=== PATIENT | female | born 1950 | race Caucasian/White ===

== ENCOUNTER 2017-11-23 07:30 | Inpatient (IN) | payer MEDICARE ==
[~2017-11-23] VITALS: Ht 160 cm; Wt 61.6 kg
[2017-11-23 07:59] VITALS: BP 102/56; PULSE 92; RESP 18; TEMP 98.7; O2SAT 99
[2017-11-23] MEDS ORDERED: SODIUM CHLOR 0.9% 1000 ML INJ 1,000 ML IV SCH (07:59)
[2017-11-23] MEDS ORDERED: SODIUM CHLORIDE 0.9% FLUSH 10 ML FLUSH IV FLUSH PRN (08:00)
[2017-11-23] MEDS ORDERED: ONDANSETRON HCL 4 MG/2 ML VIAL IVP ONE (08:00)
[2017-11-23] MEDS ORDERED: FAMOTIDINE 20 MG/2 ML VIAL IV PUSH ONE (08:00)
[2017-11-23] MEDS ORDERED: ALUMINUM/MAGNESIUM/SIMETH 30 ML CUP PO ONE (08:00)
[2017-11-23] MEDS ORDERED: LIDOCAINE VISCOUS 2% SOLN 15 ML UDC PO ONE (08:00)
[2017-11-23 08:02] VITALS: O2SAT 94; O2SAT 99
[2017-11-23] MEDS ORDERED: VORT1TAB3 PO (08:08)
[2017-11-23 08:58] LABS: AUTOMATED NEUTROPHIL # 2.7 TH/MM3 (1.8-7.7); BASOPHIL % 0.3 % (0.0-2.0); EOSINOPHIL % 0.6 % (0.0-4.0); HEMATOCRIT 44.2 % (35.0-46.0); HEMOGLOBIN 14.5 GM/DL (11.6-15.3); LYMPH % 13.4 % (9.0-44.0); LYMPHOCYTE # 0.6 TH/MM3 (1.0-4.8); MEAN CELL VOLUME 92.5 FL (80.0-100.0); MEAN CORPUSCULAR HEMOGLOBIN 30.3 PG (27.0-34.0); MEAN CORPUSCULAR HGB CONC 32.8 % (32.0-36.0); MEAN PLATELET VOLUME 9.3 FL (7.0-11.0); MONO % 27.5 % (0.0-8.0); MONOCYTE # 1.3 TH/MM3 (0-0.9); NEUT % 58.2 % (16.0-70.0); PLATELET COUNT 313 TH/MM3 (150-450); RED BLOOD COUNT 4.78 MIL/MM3 (4.00-5.30); RED CELL DISTRIBUTION WIDTH 15.1 % (11.6-17.2); WHITE BLOOD COUNT 4.7 TH/MM3 (4.0-11.0)
[2017-11-23 09:23] LABS: ALBUMIN 3.6 GM/DL (3.4-5.0); ALT (GPT) 14 U/L (10-53); BICARBONATE 24.4 MEQ/L (21.0-32.0); BLOOD UREA NITROGEN 21 MG/DL (7-18); CALCIUM 8.9 MG/DL (8.5-10.1); CHLORIDE 100 MEQ/L (98-107); GLUCOSE,RANDOM 107 MG/DL (74-106); LIPASE 55 U/L (73-393); SODIUM (NA) 134 MEQ/L (136-145)
[2017-11-23 09:24] LABS: AST (GOT) 15 U/L (15-37); GLOMERULAR FILTRATION RATE 71 ML/MIN (>89)
[2017-11-23 09:26] LABS: ALKALINE PHOSPHATASE 83 U/L (45-117); TOTAL BILIRUBIN ADULT 0.6 MG/DL (0.2-1.0); TOTAL PROTEIN 7.4 GM/DL (6.4-8.2)
[2017-11-23] MEDS ORDERED: DIAZEPAM 5 MG TAB PO ONE (10:00)
--- NOTE | 2017-11-23 10:09 | RADRPT ---
EXAM DATE/TIME: 11/23/2017 09:46 [place] COMPARISON: No previous studies available for comparison. INDICATIONS : Diffuse abdomen pain with nausea and vomiting for three days. ORAL CONTRAST: No oral contrast ingested. RADIATION DOSE: 4.93 CTDIvol (mGy) MEDICAL HISTORY : diabetes SURGICAL HISTORY : Cholecystectomy. Tonsillectomy.hernia repair ENCOUNTER: Initial ACUITY: 3 days PAIN SCALE: 9/10 LOCATION: Bilateral abdomen TECHNIQUE: Volumetric scanning of the abdomen and pelvis was performed. Using automated exposure control and ad justment of the mA and/or kV according to patient size, radiation dose was kept as low as reasonably achievable to obtain optimal diagnostic quality images. DICOM format image data is available electro nically for review and comparison. FINDINGS: LOWER LUNGS: The visualized lower lungs are clear. Trace pericardial effusion. LIVER: Moderate severity intrahepatic biliary ductal dilatation involving the left lobe. No discrete mass id entified. The common duct is dilated measuring 15 mm in diameter. Status post cholecystectomy. SPLEEN: Normal size without lesion. PANCREAS: Within normal limits. KIDNEYS: Normal in size and shape. There is no mass, stone, or hydronephrosis. ADRENAL GLANDS: Within normal limits. VASCULAR: There is no aortic aneurysm. BOWEL/MESENTERY: Mild distention of multiple loops of mid small bowel with multiple air-fluid levels. Moderate distent ion of a loop of small bowel in the pelvis. Distal ileum is decompressed. Possible transition point i n the right lower quadrant. Gas and stool throughout the colon. No free air or free fluid. Likely manuel endix is identified and it is within normal limits. ABDOMINAL WALL: Within normal limits. RETROPERITONEUM: Retroperitoneal surgical clips just below the aortic bifurcation. BLADDER: No wall thickening or mass. REPRODUCTIVE: Within normal limits. INGUINAL: There is no lymphadenopathy or hernia. MUSCULOSKELETAL: Within normal limits for patient age. CONCLUSION: 1. Dilated distal small bowel with possible transition point indicating possible early or partial sma ll bowel obstruction. 2. Nonspecific dilated intrahepatic biliary ducts of the left lobe and prominent common duct. Common duct dilatation may be due to the postcholecystectomy state. Dusty Ruff MD on November 23, 2017 at 9:59 Board Certified Radiologist. This report was verified electronically.
--- NOTE | 2017-11-23 10:19 | PD ---
HPI Chief Complaint: Abdominal Pain Time Seen by Provider: 07:59 Travel History International Travel<30 days: No Contact w/Intl Traveler<30days: No Traveled to known affect area: No History of Present Illness HPI Patient is a 67 year old female who comes in complaining of abdominal pain. She says she has history of gastritis and this feels similar. She says that this started 2 days ago. She is traveling from [place] and has been in the car for the past 2 days. She says she has been vomiting and has had "soft" bowel movements. She denies fever or chills. She says that Valium usually helps her, but she is traveling and does not have any. She has been taking Tylenol, but this has not helped any of her symptoms. She says nothing seems to make her symptoms better. [facility] Past Medical History Anxiety: Yes Depression: Yes Cancer: Yes Diabetes: Yes Past Surgical History Cholecystectomy: Yes Eye Surgery: Yes Tonsillectomy: Yes Other Surgery: Yes (HERINA, LAPAROTOMY ) Social History Alcohol Use: Yes (OCC) Tobacco Use: No Substance Use: No Allergies-Medications (Allergen,Severity, Reaction): Coded Allergies: codeine (Verified Allergy, Unknown, 11/23/17) Reported Meds & Prescriptions Reported Meds & Active Scripts Active Reported Trintellix (Vortioxetine) 20 Mg Tab 20 Mg PO DAILY Review of Systems Except as stated in HPI: all other systems reviewed are Neg General / Constitutional: No: Fever, Chills HENT: No: Headaches, Lightheadedness Cardiovascular: No: Chest Pain or Discomfort Respiratory: No: Shortness of Breath Gastrointestinal: Positive: Nausea, Vomiting, Abdominal Pain Genitourinary: No: Dysuria Musculoskeletal: No: Myalgias, Edema Skin: No Rash, No Change in Pigmentation Neurologic: No: Weakness, Dizziness Physical Exam Narrative GENERAL: Awake and alert, in no acute distress. SKIN: Focused skin assessment warm/dry. HEAD: Atraumatic. Normocephalic. EYES: Pupils equal and round. No scleral icterus. No injection or drainage. ENT: Mucous membranes pink and moist. NECK: Trachea midline. No JVD. CARDIOVASCULAR: Regular rate and rhythm. No murmur appreciated. RESPIRATORY: No accessory muscle use. Clear to auscultation. Breath sounds equal bilaterally. GASTROINTESTINAL: Abdomen soft, nondistended. Diffuse tenderness to palpation, no rebound or guarding. MUSCULOSKELETAL: No obvious deformities. No clubbing. No cyanosis. No edema. NEUROLOGICAL: Awake and alert. No obvious cranial nerve deficits. Motor grossly within normal limits. Normal speech. PSYCHIATRIC: Appropriate mood and affect; insight and judgment normal. Data Data Last Documented VS Vital Signs Date Time Temp Pulse Resp B/P (MAP) Pulse Ox O2 Delivery O2 Flow Rate FiO2 11/23/17 08:03 18 11/23/17 08:02 99 Room Air 11/23/17 07:59 98.7 92 102/56 (71) Orders Orders Complete Blood Count With Diff (11/23/17 07:59) Comprehensive Metabolic Panel (11/23/17 07:59) Lipase (11/23/17 07:59) Prothrombin Time / Inr (Pt) (11/23/17 07:59) Act Partial Throm Time (Ptt) (11/23/17 07:59) Urinalysis - C+S If Indicated (11/23/17 07:59) Iv Access Insert/Monitor (11/23/17 07:59) Ecg Monitoring (11/23/17 07:59) Oximetry (11/23/17 07:59) Ondansetron Inj (Zofran Inj) (11/23/17 08:00) Sodium Chlor 0.9% 1000 Ml Inj (Ns 1000 M (11/23/17 07:59) Sodium Chloride 0.9% Flush (Ns Flush) (11/23/17 08:00) Famotidine Inj (Pepcid Inj) (11/23/17 08:00) Al-Mag Hy-Si 40-40-4 Mg/Ml Liq (Mag-Al P (11/23/17 08:00) Lidocaine 2% Viscous (Xylocaine 2% Visco (11/23/17 08:00) Lactic Acid (11/23/17 08:39) Ct Abd/Pel W/O Iv Contrast (11/23/17 ) Diazepam (Valium) (11/23/17 10:00) Ng Gastric Tube Insert/Monitor (11/23/17 10:36) Admit Order (Ed Use Only) (11/23/17 ) Labs Laboratory Tests Test 11/23/17 08:35 11/23/17 08:45 11/23/17 11:00 White Blood Count 4.7 TH/MM3 Red Blood Count 4.78 MIL/MM3 Hemoglobin 14.5 GM/DL Hematocrit 44.2 % Mean Corpuscular Volume 92.5 FL Mean Corpuscular Hemoglobin 30.3 PG Mean Corpuscular Hemoglobin Concent 32.8 % Red Cell Distribution Width 15.1 % Platelet Count 313 TH/MM3 Mean Platelet Volume 9.3 FL Neutrophils (%) (Auto) 58.2 % Lymphocytes (%) (Auto) 13.4 % Monocytes (%) (Auto) 27.5 % Eosinophils (%) (Auto) 0.6 % Basophils (%) (Auto) 0.3 % Neutrophils # (Auto) 2.7 TH/MM3 Lymphocytes # (Auto) 0.6 TH/MM3 Monocytes # (Auto) 1.3 TH/MM3 Eosinophils # (Auto) 0.0 TH/MM3 Basophils # (Auto) 0.0 TH/MM3 CBC Comment DIFF FINAL Differential Comment Blood Urea Nitrogen 21 MG/DL Creatinine 0.80 MG/DL Random Glucose 107 MG/DL Total Protein 7.4 GM/DL Albumin 3.6 GM/DL Calcium Level 8.9 MG/DL Alkaline Phosphatase 83 U/L Aspartate Amino Transf (AST/SGOT) 15 U/L Alanine Aminotransferase (ALT/SGPT) 14 U/L Total Bilirubin 0.6 MG/DL Sodium Level 134 MEQ/L Potassium Level 4.0 MEQ/L Chloride Level 100 MEQ/L Carbon Dioxide Level 24.4 MEQ/L Anion Gap 10 MEQ/L Estimat Glomerular Filtration Rate 71 ML/MIN Lipase 55 U/L Lactic Acid Level 1.2 mmol/L MDM Medical Decision Making Medical Screen Exam Complete: Yes Emergency Medical Condition: Yes Differential Diagnosis gastritis vs pancreatitis vs colitis Narrative Course Patient is a 67-year-old female comes in complaining of abdominal pain with nausea and vomiting. Exam shows diffuse abdominal tenderness. IV established, labs sent. Labs show evidence of mild dehydration. CT abdomen and pelvis performed shows possible small bowel obstruction with a transition point. Last 24 hours Impressions Abdomen/Pelvis CT 11/23/17 0000 Signed Impressions: Service Date/Time: Thursday, November 23, 2017 09:46 - CONCLUSION: 1. Dilated distal small bowel with possible transition point indicating possible early or partial small bowel obstruction. 2. Nonspecific dilated intrahepatic biliary ducts of the left lobe and prominent common duct. Common duct dilatation may be due to the postcholecystectomy state. Dusty Ruff MD NG tube was inserted. Patient given Zofran and pain medication. She'll be admitted for further management. Diagnosis Primary Impression: Small bowel obstruction Admitting Information Admitting Physician Requests: Admit Deepali Cox MD Nov 23, 2017 10:19
[2017-11-23 11:00] VITALS: BP 102/50; PULSE 90; RESP 16; O2SAT 93
[2017-11-23 11:29] LABS: BACTERIA, URINE FEW /hpf; BILIRUBIN, URINE NEG (NEG); BLOOD, URINE NEG (NEG); GLUCOSE,URINE NEG (NEG); KETONE, URINE 40 mg/dL (NEG); MUCUS URINE FEW /lpf (OCC); NITRITE,URINE POS (NEG); SQUAMOUS EPITHELIAL CELL URINE <1 /hpf (0-5); URINE COLOR YELLOW (YELLW/STRAW); URINE LEUKOCYTE ESTERASE NEG (NEG)
[2017-11-23] MEDS ORDERED: RESP: ALBUTEROL 2.5 MG/IPRATROPIUM 0.5 MG NEB (PRN) NEB (11:30)
[2017-11-23] MEDS ORDERED: ACETAMINOPHEN 650 MG SUPP RECTAL PRN (11:30)
[2017-11-23 11:37] VITALS: O2SAT 93
--- NOTE | 2017-11-23 11:41 | HHI.HP ---
[facility] Unknown Admission Diagnosis Small bowel obstruction Diagnoses: Travel History International Travel<30 Days: No Contact w/Intl Traveler <30 Da: No Traveled to Known Affected Are: No History of Present Illness 67-year-old female with a past medical history significant for non-Hodgkin's lymphoma, COPD on home oxygen, diabetes insipidus and migraine headaches presents to the emergency department for evaluation of abdominal pain. The patient states she began having crampy, spasm-like generalized abdominal pain on . She endorses associated nausea and vomiting. Denies fever/ chills. Last bowel movement was small volume, occurring this morning. CT of the abdomen/pelvis consistent with early versus partial small bowel obstruction. Patient has had multiple abdominal surgeries in the past. Review of Systems Denies fever or chills Denies blurry vision, otorrhea, rhinorrhea Denies sore throat and cough No chest pain, palpitations, shortness of breath Positive abdominal pain Denies constipation/diarrhea. Positive nausea/vomiting Denies muscle pain/weakness No rashes Past Family Social History Past Medical History Non-Hodgkin's lymphoma 2, first episode in 1978, recurrence in 2014 now in remission COPD on 4 L nasal cannula continuously Diabetes insipidus Migraines Hyperlipidemia Past Surgical History Laparotomy 2 Bowel resection Cholecystectomy Hernia repair Right shoulder rotator cuff repair Tonsillectomy Reported Medications Reported Meds & Active Scripts Active Reported Trintellix (Vortioxetine) 20 Mg Tab 20 Mg PO DAILY Allergies: Coded Allergies: codeine (Verified Allergy, Unknown, 11/23/17) Family History Father with CAD Social History Quit smoking 10 years ago. Occasional alcohol. Denies illicit drugs. Physical Exam Vital Signs Vital Signs Date Time Temp Pulse Resp B/P (MAP) Pulse Ox O2 Delivery O2 Flow Rate FiO2 11/23/17 08:03 18 11/23/17 08:02 99 Room Air 11/23/17 07:59 98.7 92 18 102/56 (71) 99 Physical Exam GENERAL: Thin, female lying in bed SKIN: No rashes, ecchymoses or lesions. Cool and dry. HEAD: Atraumatic. Normocephalic. No temporal or scalp tenderness. EYES: Pupils equal round and reactive. Extraocular motions intact. No scleral icterus. No injection or drainage. ENT: Nose without bleeding, purulent drainage or septal hematoma. Throat without erythema, tonsillar hypertrophy or exudate. Uvula midline. Airway patent. NECK: Trachea midline. No JVD or lymphadenopathy. Supple, nontender, no meningeal signs. CARDIOVASCULAR: Regular rate and rhythm without murmurs, gallops, or rubs. RESPIRATORY: Clear to auscultation. Breath sounds equal bilaterally. No wheezes , rales, or rhonchi. GASTROINTESTINAL: Abdomen soft, nondistended. Extremely tender to palpation throughout. No hepato-splenomegaly, or palpable masses. MUSCULOSKELETAL: Extremities without clubbing, cyanosis, or edema. No joint tenderness, effusion, or edema noted. No calf tenderness. NEUROLOGICAL: Awake and alert. Cranial nerves II through XII intact. Motor and sensory grossly within normal limits. Normal speech. Laboratory Laboratory Tests Test 11/23/17 08:35 11/23/17 08:45 11/23/17 11:00 White Blood Count 4.7 Red Blood Count 4.78 Hemoglobin 14.5 Hematocrit 44.2 Mean Corpuscular Volume 92.5 Mean Corpuscular Hemoglobin 30.3 Mean Corpuscular Hemoglobin Concent 32.8 Red Cell Distribution Width 15.1 Platelet Count 313 Mean Platelet Volume 9.3 Neutrophils (%) (Auto) 58.2 Lymphocytes (%) (Auto) 13.4 Monocytes (%) (Auto) 27.5 Eosinophils (%) (Auto) 0.6 Basophils (%) (Auto) 0.3 Neutrophils # (Auto) 2.7 Lymphocytes # (Auto) 0.6 Monocytes # (Auto) 1.3 Eosinophils # (Auto) 0.0 Basophils # (Auto) 0.0 CBC Comment DIFF FINAL Differential Comment Blood Urea Nitrogen 21 Creatinine 0.80 Random Glucose 107 Total Protein 7.4 Albumin 3.6 Calcium Level 8.9 Alkaline Phosphatase 83 Aspartate Amino Transf (AST/SGOT) 15 Alanine Aminotransferase (ALT/SGPT) 14 Total Bilirubin 0.6 Sodium Level 134 Potassium Level 4.0 Chloride Level 100 Carbon Dioxide Level 24.4 Anion Gap 10 Estimat Glomerular Filtration Rate 71 Lipase 55 Lactic Acid Level 1.2 Result Diagram: 11/23/1783411/23/17834 Caprini VTE Risk Assessment Caprini VTE Risk Assessment: Mod/High Risk (score >= 2) Caprini Risk Assessment Model Point Value = 1 Point Value = 2 Point Value = 3 Point Value = 5 Age 41-60 Minor surgery BMI > 25 kg/m2 Swollen legs Varicose veins or History of unexplained or recurrent spontaneous Oral contraceptives or hormone replacement Sepsis (< 1 month) Serious lung disease, including pneumonia (< 1 month) Abnormal pulmonary function Acute myocardial infarction Congestive heart failure (< 1 month) History of inflammatory bowel disease Medical patient at bed rest Age 61-74 Arthroscopic surgery Major open surgery (> 45 min) Laparoscopic surgery (> 45 min) Malignancy Confined to bed (> 72 hours) Immobilizing plaster cast Central venous access Age >= 75 History of VTE Family history of VTE Factor V Leiden Prothrombin [id number] Lupus anticoagulant Anticardiolipin antibodies Elevated serum homocysteine Heparin-induced thrombocytopenia Other congenital or acquired thrombophilia Stroke (< 1 month) Elective arthroplasty Hip, pelvis, or leg fracture Acute spinal cord injury (< 1 month) Prophylaxis Regimen Total Risk Factor Score Risk Level Prophylaxis Regimen 0-1 Low Early ambulation 2 Moderate Order ONE of the following: *Sequential Compression Device (SCD) *Heparin 5000 units SQ BID 3-4 Higher Order ONE of the following medications: *Heparin 5000 units SQ TID *Enoxaparin/Lovenox 40 mg SQ daily (WT < 150 kg, CrCl > 30 mL/min) *Enoxaparin/Lovenox 30 mg SQ daily (WT < 150 kg, CrCl > 10-29 mL/min) *Enoxaparin/Lovenox 30 mg SQ BID (WT < 150 kg, CrCl > 30 mL/min) AND/OR *Sequential Compression Device (SCD) 5 or more Highest Order ONE of the following medications: *Heparin 5000 units SQ TID (Preferred with Epidurals) *Enoxaparin/Lovenox 40 mg SQ daily (WT < 150 kg, CrCl > 30 mL/min) *Enoxaparin/Lovenox 30 mg SQ daily (WT < 150 kg, CrCl > 10-29 mL/min) *Enoxaparin/Lovenox 30 mg SQ BID (WT < 150 kg, CrCl > 30 mL/min) AND *Sequential Compression Device (SCD) Assessment and Plan Assessment and Plan Assessment/plan: 1. Bowel obstruction CT of the abdomen/pelvis shows dilated distal small bowel with possible transition point indicating early versus partial small bowel obstruction Patient with history of multiple abdominal surgeries Nothing by mouth NG tube Morphine for pain Protonix General surgery consulted, appreciate recommendations 2. Diabetes insipidus Converted patient's desmopressin to IV Monitor sodium 3. COPD Patient uses 4 L nasal cannula continuously at home Continue supplemental oxygen DuoNeb's FEN NPO D5 1/2 NS at 70 cc/hr Electrolytes: monitor and replete prn Heparin Physician Certification 2 Midnight Certification Type: Admission for Inpatient Services Order for Inpatient Services The services are ordered in accordance with Medicare regulations or non- Medicare payer requirements, as applicable. In the case of services not specified as inpatient-only, they are appropriately provided as inpatient services in accordance with the 2-midnight benchmark. Estimated LOS (days): 2 2 days is the estimated time the patient will need to remain in the hospital, assuming treatment plan goals are met and no additional complications. Post-Hospital Plan: Not yet determined Megan Sethi MD Nov 23, 2017 11:41
[2017-11-23] MEDS ORDERED: cefTRIAXone INJ 1,000 MG in SODIUM CHLORIDE 0.9% INJ 100 ML IV ONE (12:00)
[2017-11-23] MEDS: HEPARIN SODIUM - SQ 10,000 UNITS/ML VIAL SQ SCH (12:22)
[2017-11-23] MEDS: MORPHINE SULFATE 4 MG/ML INJ IV PUSH PRN ×3 (12:23→21:11)
[2017-11-23] MEDS: ONDANSETRON HCL 4 MG/2 ML VIAL IV PUSH PRN (12:24)
[2017-11-23 16:01] VITALS: BP 107/50; PULSE 85; RESP 16; O2SAT 98
--- NOTE | 2017-11-23 16:03 | PD.CAR.PN ---
CVT Progress Note Subjective/Hospital Course: Patient evaluated Full consult dictated Will follow Nathaniel Holm Objective: Vital Signs Date Time Temp Pulse Resp B/P (MAP) Pulse Ox O2 Delivery O2 Flow Rate FiO2 11/23/17 11:37 93 Nasal Cannula 4.00 11/23/17 11:00 90 16 102/50 (67) 93 Nasal Cannula 4.00 11/23/17 08:03 18 11/23/17 08:02 94 Nasal Cannula 4.00 11/23/17 07:59 98.7 92 18 102/56 (71) 99 Labs: Laboratory Tests Test 11/23/17 08:35 11/23/17 08:45 11/23/17 11:00 White Blood Count 4.7 TH/MM3 (4.0-11.0) Red Blood Count 4.78 MIL/MM3 (4.00-5.30) Hemoglobin 14.5 GM/DL (11.6-15.3) Hematocrit 44.2 % (35.0-46.0) Mean Corpuscular Volume 92.5 FL (80.0-100.0) Mean Corpuscular Hemoglobin 30.3 PG (27.0-34.0) Mean Corpuscular Hemoglobin Concent 32.8 % (32.0-36.0) Red Cell Distribution Width 15.1 % (11.6-17.2) Platelet Count 313 TH/MM3 (150-450) Mean Platelet Volume 9.3 FL (7.0-11.0) Neutrophils (%) (Auto) 58.2 % (16.0-70.0) Lymphocytes (%) (Auto) 13.4 % (9.0-44.0) Monocytes (%) (Auto) 27.5 % (0.0-8.0) Eosinophils (%) (Auto) 0.6 % (0.0-4.0) Basophils (%) (Auto) 0.3 % (0.0-2.0) Neutrophils # (Auto) 2.7 TH/MM3 (1.8-7.7) Lymphocytes # (Auto) 0.6 TH/MM3 (1.0-4.8) Monocytes # (Auto) 1.3 TH/MM3 (0-0.9) Eosinophils # (Auto) 0.0 TH/MM3 (0-0.4) Basophils # (Auto) 0.0 TH/MM3 (0-0.2) CBC Comment DIFF FINAL Differential Comment Blood Urea Nitrogen 21 MG/DL (7-18) Creatinine 0.80 MG/DL (0.50-1.00) Random Glucose 107 MG/DL (74-106) Total Protein 7.4 GM/DL (6.4-8.2) Albumin 3.6 GM/DL (3.4-5.0) Calcium Level 8.9 MG/DL (8.5-10.1) Alkaline Phosphatase 83 U/L (45-117) Aspartate Amino Transf (AST/SGOT) 15 U/L (15-37) Alanine Aminotransferase (ALT/SGPT) 14 U/L (10-53) Total Bilirubin 0.6 MG/DL (0.2-1.0) Sodium Level 134 MEQ/L (136-145) Potassium Level 4.0 MEQ/L (3.5-5.1) Chloride Level 100 MEQ/L (98-107) Carbon Dioxide Level 24.4 MEQ/L (21.0-32.0) Anion Gap 10 MEQ/L (5-15) Estimat Glomerular Filtration Rate 71 ML/MIN (>89) Lipase 55 U/L (73-393) Lactic Acid Level 1.2 mmol/L (0.4-2.0) Urine Color YELLOW (YELLW/STRAW) Urine Turbidity CLEAR (CLEAR) Urine pH 6.0 (5.0-8.5) Urine Specific [place] 1.014 (1.002-1.035) Urine Protein TRACE mg/dL (NEG-TRACE) Urine Glucose (UA) NEG mg/dL (NEG) Urine Ketones 40 mg/dL (NEG) Urine Occult Blood NEG (NEG) Urine Nitrite POS (NEG) Urine Bilirubin NEG (NEG) Urine Urobilinogen LESS THAN 2.0 MG/DL (LESS Urine Leukocyte Esterase NEG (NEG) Urine RBC LESS THAN 1 /hpf (0-3) Urine WBC 3 /hpf (0-5) Urine Squamous Epithelial Cells <1 /hpf (0-5) Urine Bacteria FEW /hpf (NONE) Urine Mucus FEW /lpf (OCC) Microscopic Urinalysis Comment CULTURE INDICATED Result Diagram: 11/23/17 0835 11/23/17 0835 Jem Cunningham MD Nov 23, 2017 16:03
[2017-11-23] MEDS: D5-1/2 NS + KCL 20 MEQ INJ 1,000 ML IV SCH (16:52)
--- NOTE | 2017-11-23 17:29 | MB ---
cc: MD MIRANDA,[employer] [facility] DATE OF CONSULTATION: 11/23/2017. REASON FOR CONSULTATION: Small-bowel obstruction, nausea, vomiting, Non-Hodgkin lymphoma. CRITICAL CARE TIME: Thirty-eight (38) minutes. HISTORY OF PRESENT ILLNESS: This pleasant 67-year-old lady who was traveling here presented to the hospital with nausea, vomiting and severe abdominal pain. The pain was crampy and generalized since . The patient was now admitted and was diagnosed with a small bowel obstruction, hence, the consultation. PAST MEDICAL HISTORY: The past medical history is that of: 1. Non-Hodgkin's lymphoma in 1978 with recurrence in 2014, now in remission. 2. COPD on home oxygen. 3. Migraines. 4. Hyperlipidemia. PAST SURGICAL HISTORY: 1. Laparotomy in 1978 with staging and bowel resection and then two more since with the last one a few years ago. 2. Cholecystectomy. 3. Right inguinal hernia repair. 4. Tonsillectomy. 5. Right shoulder rotator cuff repair. MEDICATIONS: Medications can be found on the record. SOCIAL HISTORY: The patient does not smoke or drink. PHYSICAL EXAMINATION: GENERAL: The physical examination reveals a pleasant frail 67-year-old lady in no acute distress. HEAD, EYES, EARS, NOSE, THROAT: Normocephalic. No trauma to the head. Pupils equal and reactive. Extraocular muscles intact. NECK: The neck is supple. Bilateral carotid pulses. No bruits. No masses in the neck. I do not feel any lymphadenopathy in the neck area other than occasional scattered lymph nodes. CHEST: Bilateral breath sounds decreased over both lung silva. The patient has severe COPD with loss of chest wall musculature and atrophy of the chest. HEART: Regular rhythm. ABDOMEN: The abdomen is soft, slightly distended, hypoactive bowel sounds. Nasogastric tube is in position and the patient has in the meantime decompressed, although she has gas. No rebound or guarding. Scars from previous surgery noted. PELVIS: Stable. EXTREMITIES: The patient has bilateral femoral, popliteal, dorsalis pedis and posterior tibial pulses. No signs of vascular deficit. BACK: The back is normal. NEUROLOGIC: The patient is intact. IMPRESSION AND RECOMMENDATIONS: I reviewed laboratory and diagnostic procedures on this lady. She indeed presents with a small bowel obstruction but also some gas in the colon, so for all practical purposes, this is a partial small-bowel obstruction. The patient had multiple previous surgeries and most likely this is related to adhesions but of course could be also related to the non-Hodgkin lymphoma, although I do not see any big nodes that would jump at me in the on looking at the CT scan. At this point, I believe it is appropriate to manage the patient conservatively with IV fluids and nasogastric tube suction and we will see which way it goes. In most patients, about 75-80% will resolve within 48 hours and then some of it is slightly later. If the patient does not resolve by three days or so then of course we will have to resort to surgery. However, in this particular lady, she is very frail and every effort should be made not to need surgery. Thank you very much for the referral. I will continue to follow the patient. Jem EISENBERG/LAURO /3:43 PM /5:07 PM
[2017-11-23 20:00] VITALS: BP 116/56; PULSE 83; RESP 16; TEMP 96.7; O2SAT 94
[2017-11-23] MEDS: DESMOPRESSIN ACETATE 4 MCG/ML VIAL IV PUSH SCH (20:12)
[2017-11-24] VITALS: BP 100/51; PULSE 78; RESP 18; TEMP 97.3; O2SAT 96
[2017-11-24] MEDS: HEPARIN SODIUM - SQ 10,000 UNITS/ML VIAL SQ SCH (01:37)
[2017-11-24] MEDS: MORPHINE SULFATE 4 MG/ML INJ IV PUSH PRN ×6 (01:37→23:26)
[2017-11-24] MEDS: D5-1/2 NS + KCL 20 MEQ INJ 1,000 ML IV SCH ×2 (01:37→17:20)
[2017-11-24 08:00] VITALS: BP 105/53; PULSE 68; RESP 18; TEMP 96.1; O2SAT 100
[2017-11-24] MEDS: DESMOPRESSIN ACETATE 4 MCG/ML VIAL IV PUSH SCH ×2 (08:14→19:48)
[2017-11-24] MEDS ORDERED: PANTOPRAZOLE SODIUM 40 MG VIAL IV PUSH SCH (09:00)
[2017-11-24 10:17] VITALS: O2SAT 100
[2017-11-24 11:19] LABS: AUTOMATED NEUTROPHIL # 2.3 TH/MM3 (1.8-7.7); EOSINOPHIL # 0.3 TH/MM3 (0-0.4); EOSINOPHIL % 5.7 % (0.0-4.0); HEMATOCRIT 33.5 % (35.0-46.0); HEMOGLOBIN 11.2 GM/DL (11.6-15.3); LYMPHOCYTE # 1.1 TH/MM3 (1.0-4.8); MEAN CELL VOLUME 93.9 FL (80.0-100.0); MEAN CORPUSCULAR HEMOGLOBIN 31.4 PG (27.0-34.0); MEAN CORPUSCULAR HGB CONC 33.4 % (32.0-36.0); MEAN PLATELET VOLUME 9.5 FL (7.0-11.0); MONO % 20.2 % (0.0-8.0); NEUT % 49.1 % (16.0-70.0); PLATELET COUNT 217 TH/MM3 (150-450); RED BLOOD COUNT 3.57 MIL/MM3 (4.00-5.30); RED CELL DISTRIBUTION WIDTH 15.4 % (11.6-17.2); WHITE BLOOD COUNT 4.7 TH/MM3 (4.0-11.0)
--- NOTE | 2017-11-24 11:28 | HHI.PR ---
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 minimal pain right foot Objective Vitals Vital Signs Date Time Temp Pulse Resp B/P (MAP) Pulse Ox O2 Delivery O2 Flow Rate FiO2 11/24/17 10:17 100 Nasal Cannula 4.00 11/24/17 08:00 96.1 68 18 105/53 (70) 100 11/24/17 00:00 97.3 78 18 100/51 (67) 96 11/23/17 21:27 Nasal Cannula 4.00 11/23/17 20:00 96.7 83 16 116/56 (76) 94 11/23/17 16:01 85 16 107/50 (69) 98 Nasal Cannula 4.00 11/23/17 11:37 93 Nasal Cannula 4.00 I/O 11/23/17 11/23/17 11/23/17 11/24/17 11/24/17 11/24/17 07:00 15:00 23:00 07:00 15:00 23:00 Intake Total 1000 ml Output Total 50 ml 400 ml Balance 1000 ml -50 ml -400 ml Intake IV Total 1000 ml Output Urine Total 400 ml Gastric Drainage Total 50 ml Result Diagram: 11/23/17 0835 11/23/17 0835 Imaging Last Impressions Abdomen/Pelvis CT 11/23/17 0000 Signed Impressions: Service Date/Time: Thursday, November 23, 2017 09:46 - CONCLUSION: 1. Dilated distal small bowel with possible transition point indicating possible early or partial small bowel obstruction. 2. Nonspecific dilated intrahepatic biliary ducts of the left lobe and prominent common duct. Common duct dilatation may be due to the postcholecystectomy state. Dusty Ruff MD Objective Remarks awake and alert, dry oral mucosa anicteric lungs- no rales regular rhythm abdomen- distended, tenderness on palpation , + hyperactive bowel sounds extremities no edema A/P Assessment and Plan 67 years old female here visiting from [place] withNon Hodgkin's lymphoma - involving small intestine S/P cemo treatment 2 1/ years ago - with extensive SB resection due to rupture- in 1978 states history of Gastritis, chronic Abdominal spasms- where only Valium helps prn SBO- conservative management- tender History of GI Lymphoma S/P tretment keep NGT. GS ff continue IVF. monitor electrolytes repeat KUB now- r/o peforation prn IV pain meds UGIB- r/o MW may be from wretching- history of GIB - post EGD-in the past gastrtiis GI consult start PPI Recent fall about 2 weeks ago- urgent care visit- showed ? avulsion fracture- instructed to ff up with Podiatry when gets back to [place] get xray here get Podiatry consult History of DI continue DDVAP (on po as OP ). 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
[2017-11-24 11:50] LABS: ALKALINE PHOSPHATASE 63 U/L (45-117); ALT (GPT) 12 U/L (10-53); AST (GOT) 11 U/L (15-37); BICARBONATE 28.1 MEQ/L (21.0-32.0); BLOOD UREA NITROGEN 11 MG/DL (7-18); CALCIUM 8.2 MG/DL (8.5-10.1); CHLORIDE 107 MEQ/L (98-107); CREATININE 0.51 MG/DL (0.50-1.00); GLOMERULAR FILTRATION RATE 120 ML/MIN (>89); GLUCOSE,RANDOM 93 MG/DL (74-106); SODIUM (NA) 139 MEQ/L (136-145); TOTAL BILIRUBIN ADULT 0.2 MG/DL (0.2-1.0); TOTAL PROTEIN 6.3 GM/DL (6.4-8.2)
[2017-11-24 12:00] VITALS: BP 115/55; PULSE 81; RESP 18; TEMP 96.1; O2SAT 99
--- NOTE | 2017-11-24 12:06 | RADRPT ---
EXAM DATE/TIME: 11/24/2017 11:42 [facility] COMPARISON: No previous studies available for comparison. INDICATIONS : Right foot pain. MEDICAL HISTORY : None. SURGICAL HISTORY : None. ENCOUNTER: Initial ACUITY: 2 days PAIN SCORE: 5/10 LOCATION: Right foot. FINDINGS: 3 views right foot. Bone alignment within normal limits. No evidence of fracture. CONCLUSION: Right foot series within normal limits for Dusty Ruff MD on November 24, 2017 at 12:01 Board Certified Radiologist. This report was verified electronically.
--- NOTE | 2017-11-24 12:24 | RADRPT ---
EXAM DATE/TIME: 11/24/2017 11:35 [facility] COMPARISON: CT ABDOMEN & PELVIS W/O CONTRAST, November 23, 2017, 9:46. INDICATIONS : Abdominal pain. Nausea and vomiting. MEDICAL HISTORY : Diabetes mellitus type II. SURGICAL HISTORY : Cholecystectomy. Inguinal hernia repair. ENCOUNTER: Subsequent ACUITY: 4 - 6 days PAIN SCORE: 8/10 LOCATION: abdomen. FINDINGS: Supine and upright views of the abdomen were performed. Nasogastric tube with the tip in the mid sto mach. Scattered gas and stool in the colon. Dilated air-filled distal small bowel measuring up to 4.5 cm in diameter. The appearance is similar to the ground water pump installer image of CT of 11/23/2017. No evidence of free air. CONCLUSION: Dilated air-filled distal small bowel. Similar to recent CT. Scattered gas and stool again seen in th e colon. Possible partial small bowel obstruction. Dusty Ruff MD on November 24, 2017 at 12:18 Board Certified Radiologist. This report was verified electronically.
[2017-11-24] MEDS ORDERED: LACTULOSE SYRUP 20 GM/30 ML CUP NG ONE (12:45)
--- NOTE | 2017-11-24 13:45 | PD.CONS ---
HPI History of Present Illness This is a 67 year old F with significant past medical history for non-Hodgkin's lymphoma of the small bowel S/P bowel resection. COPD requiring 4L O2 NC at home , diabetes insipidus, gastritis, and migraine headaches. Pt is from [place] and here on a seven week winter trip. She presented to the emergency department yesterday with complaints of vomiting and abdominal pain. Abdominal pain described as cramping sensation and generalized throughout abdomen. CT abdomen and pelvis W/O IV contrast (11/23) --> Dilated distal small bowel with possible transition point indication possible early or partial small bowel obstruction. Nonspecific dilated intrahepatic biliary ducts of the left lobe and prominent common duct. common duct dilation may be due to the postcholecystectomy state. Pt has been evaluated by GS who thinks the bowel obstruction is most likely secondary to adhesiolysis from bowel resection in the past. They plan to manage patient non-operatively via NGT to LIWS and IV fluids, will continue to follow GS recommendations. GI has been consulted for coffee ground emesis and possible June-Mae tears from retching. Pt reports vomiting began on night, last episode was yesterday. Denies any hematemesis, secretion in suction canister to appear to be coffee ground in appearance. H/H currently 11.2/33.5 drop from 14.5/44.2 yesterday. Pt has history of gastritis and states vomiting blood which has happened twice before in the past, no episodes recently. Pt does see GI in [place]. States her last EGD was multiple years ago and she is unsure of the findings. Last colonoscopy was approx 3 years ago, reports always has polyps. Pt denies taking NSAIDs, blood thinners, and smoking. Occasional ETOH if she goes out to eat. (Gracy Small) PFSH Past Medical History Non-Hodgkin's lymphoma 2, first episode in 1978, recurrence in 2014 now in remission COPD on 4 L nasal cannula continuously Diabetes insipidus Migraines Hyperlipidemia Small bowel resection Past Surgical History Laparotomy 2 Bowel resection Cholecystectomy Hernia repair Right shoulder rotator cuff repair Tonsillectomy (Gracy Small) Coded Allergies: codeine (Verified Allergy, Unknown, 11/23/17) Family History Father with CAD Social History Quit smoking 10 years ago. Occasional alcohol. Denies illicit drugs. (Gracy Small) Review of Systems Gastrointestinal: COMPLAINS OF: Abdominal pain, Nausea, Vomiting, Swelling of Abdomen, DENIES: Black stools, Bloody stools, Constipation, Diarrhea, Difficulty Swallowing, Anorexia, Odynophagia, Heartburn, Hematemesis (Gracy Samll) GI Exam Vitals I&O Vital Signs Date Time Temp Pulse Resp B/P (MAP) Pulse Ox O2 Delivery O2 Flow Rate FiO2 11/24/17 12:00 96.1 81 18 115/55 (75) 99 11/24/17 10:17 100 Nasal Cannula 4.00 11/24/17 08:00 96.1 68 18 105/53 (70) 100 11/24/17 00:00 97.3 78 18 100/51 (67) 96 11/23/17 21:27 Nasal Cannula 4.00 11/23/17 20:00 96.7 83 16 116/56 (76) 94 11/23/17 16:01 85 16 107/50 (69) 98 Nasal Cannula 4.00 I/O 11/23/17 11/23/17 11/23/17 11/24/17 11/24/17 11/24/17 07:00 15:00 23:00 07:00 15:00 23:00 Intake Total 1000 ml Output Total 50 ml 400 ml Balance 1000 ml -50 ml -400 ml Intake IV Total 1000 ml Output Urine Total 400 ml Gastric Drainage Total 50 ml Imaging Last Impressions Foot X-Ray 11/24/17 0000 Signed Impressions: Service Date/Time: Friday, November 24, 2017 11:42 - CONCLUSION: Right foot series within normal limits for Dusty Ruff MD Abdomen X-Ray 11/24/17 0000 Signed Impressions: Service Date/Time: Friday, November 24, 2017 11:35 - CONCLUSION: Dilated air-filled distal small bowel. Similar to recent CT. Scattered gas and stool again seen in the colon. Possible partial small bowel obstruction. Dusty Ruff MD Abdomen/Pelvis CT 11/23/17 0000 Signed Impressions: Service Date/Time: Thursday, November 23, 2017 09:46 - CONCLUSION: 1. Dilated distal small bowel with possible transition point indicating possible early or partial small bowel obstruction. 2. Nonspecific dilated intrahepatic biliary ducts of the left lobe and prominent common duct. Common duct dilatation may be due to the postcholecystectomy state. Dusty Ruff MD Laboratory Test 11/24/17 09:34 White Blood Count 4.7 TH/MM3 Red Blood Count 3.57 MIL/MM3 Hemoglobin 11.2 GM/DL Hematocrit 33.5 % Mean Corpuscular Volume 93.9 FL Mean Corpuscular Hemoglobin 31.4 PG Mean Corpuscular Hemoglobin Concent 33.4 % Red Cell Distribution Width 15.4 % Platelet Count 217 TH/MM3 Mean Platelet Volume 9.5 FL Neutrophils (%) (Auto) 49.1 % Lymphocytes (%) (Auto) 24.0 % Monocytes (%) (Auto) 20.2 % Eosinophils (%) (Auto) 5.7 % Basophils (%) (Auto) 1.0 % Neutrophils # (Auto) 2.3 TH/MM3 Lymphocytes # (Auto) 1.1 TH/MM3 Monocytes # (Auto) 1.0 TH/MM3 Eosinophils # (Auto) 0.3 TH/MM3 Basophils # (Auto) 0.0 TH/MM3 CBC Comment DIFF FINAL Differential Comment Blood Urea Nitrogen 11 MG/DL Creatinine 0.51 MG/DL Random Glucose 93 MG/DL Total Protein 6.3 GM/DL Albumin 3.0 GM/DL Calcium Level 8.2 MG/DL Alkaline Phosphatase 63 U/L Aspartate Amino Transf (AST/SGOT) 11 U/L Alanine Aminotransferase (ALT/SGPT) 12 U/L Total Bilirubin 0.2 MG/DL Sodium Level 139 MEQ/L Potassium Level 3.8 MEQ/L Chloride Level 107 MEQ/L Carbon Dioxide Level 28.1 MEQ/L Anion Gap 4 MEQ/L Estimat Glomerular Filtration Rate 120 ML/MIN Date/Time Source Procedure Growth Status 11/23/17 11:00 Urine Random Urine Urine Culture - Preliminary Gram Negative Florencio Resulted Physical Examination HEENT:Normocephalic; atraumatic CHEST: Even/unlabored CARDIAC: RRR ABDOMEN: Distended, soft, diffuse TTP, bowel sounds diminished. NGT to LIWS with coffee ground emesis EXTREMITIES: No clubbing, cyanosis, or edema. SKIN: Normal; no rash; no jaundice. BARREL AND RECEIVER ALIGNER: No focal deficits; alert and oriented times three. (Gracy Small) Assessment and Plan Plan Assessment: - Coffee ground emesis- Pt currently admitted for SBO and being managed non- operatively with NGT for decompression and IVF. CT abdomen and pelvis W/O IV contrast (11/23) --> Dilated distal small bowel with possible transition point indication possible early or partial small bowel obstruction. Nonspecific dilated intrahepatic biliary ducts of the left lobe and prominent common duct. Common duct dilation may be due to the postcholecystectomy state. Pt has been evaluated by GS who thinks the bowel obstruction is most likely secondary to adhesiolysis from bowel resection in the past. History of non-hodgkins lymphoma in small bowel, currently in remission. Pt reports vomiting began on night, last episode was yesterday. Denies any hematemesis, secretion in suction canister to appear to be coffee ground in appearance. H/H currently 11.2/33.5 drop from 14.5/44.2 yesterday. Denies blood thinners, NSAIDs, ETOH. History of gastritis and UGI bleed, multiple years ago. Pt is from [facility], where her doctors are. Last EGD multiple years ago, unsure of findings. Last colonoscopy 3 years ago, polyps. Plan: - EGD tomorrow - Obtain consents - Keep pt NPO - NGT to LIWS - Monitor H/H- repeat labs at 1800 tonight - Transfuse as needed - Protonix - Monitor NGT output - Heparin on hold - Pain control - Supportive care - Further recommendations to follow based on results of above Pt has been seen and examined by myself and Dr. Medina and this note is written on her behalf (Gracy Small) Physician Comments seen, examined agree with above abdominal distension, tenderness consistent with SBO mild drop in hb possible secondary dehydration-currently ngt drainage bilious coffee ground emesis-resolved- Recommendation iv hydration Pantoprazole monitor hb/ht possible SBFT in am as per surgery if active bleeding or hb continue to drop consider EGD, otherwise egd before discharge (Rachel Medina MD) Gracy Small Nov 24, 2017 13:45 Rachel Medina MD Nov 24, 2017 17:45
[2017-11-24 16:00] VITALS: BP 132/58; PULSE 80; RESP 19; TEMP 95.7; O2SAT 94
--- NOTE | 2017-11-24 16:03 | PD.CAR.PN ---
CVT Progress Note Subjective/Hospital Course: Patient evaluated Full consult dictated Will follow Thanks Mihai 11/24/17 Patient doing okay today. Abdomen is soft and the definitely less distended with hypoactive bowel sounds, no rebound or guarding Patient states she passed a small amount of gas last night but not much today On KUB there is more gas in the colon and small bowel is somewhat decompressed which is a good sign although patient has NG tube so it is somewhat expected Depending on clinical situation tomorrow I may order a Gastrografin follow- through and see how patient does Again every effort should be made not to operate on the patient considering several prior surgeries, as a stated in my original consult Objective: Vital Signs Date Time Temp Pulse Resp B/P (MAP) Pulse Ox O2 Delivery O2 Flow Rate FiO2 11/24/17 12:00 96.1 81 18 115/55 (75) 99 11/24/17 10:17 100 Nasal Cannula 4.00 11/24/17 08:00 96.1 68 18 105/53 (70) 100 11/24/17 00:00 97.3 78 18 100/51 (67) 96 11/23/17 21:27 Nasal Cannula 4.00 11/23/17 20:00 96.7 83 16 116/56 (76) 94 Labs: Laboratory Tests Test 11/24/17 09:34 White Blood Count 4.7 TH/MM3 (4.0-11.0) Red Blood Count 3.57 MIL/MM3 (4.00-5.30) Hemoglobin 11.2 GM/DL (11.6-15.3) Hematocrit 33.5 % (35.0-46.0) Mean Corpuscular Volume 93.9 FL (80.0-100.0) Mean Corpuscular Hemoglobin 31.4 PG (27.0-34.0) Mean Corpuscular Hemoglobin Concent 33.4 % (32.0-36.0) Red Cell Distribution Width 15.4 % (11.6-17.2) Platelet Count 217 TH/MM3 (150-450) Mean Platelet Volume 9.5 FL (7.0-11.0) Neutrophils (%) (Auto) 49.1 % (16.0-70.0) Lymphocytes (%) (Auto) 24.0 % (9.0-44.0) Monocytes (%) (Auto) 20.2 % (0.0-8.0) Eosinophils (%) (Auto) 5.7 % (0.0-4.0) Basophils (%) (Auto) 1.0 % (0.0-2.0) Neutrophils # (Auto) 2.3 TH/MM3 (1.8-7.7) Lymphocytes # (Auto) 1.1 TH/MM3 (1.0-4.8) Monocytes # (Auto) 1.0 TH/MM3 (0-0.9) Eosinophils # (Auto) 0.3 TH/MM3 (0-0.4) Basophils # (Auto) 0.0 TH/MM3 (0-0.2) CBC Comment DIFF FINAL Differential Comment Blood Urea Nitrogen 11 MG/DL (7-18) Creatinine 0.51 MG/DL (0.50-1.00) Random Glucose 93 MG/DL (74-106) Total Protein 6.3 GM/DL (6.4-8.2) Albumin 3.0 GM/DL (3.4-5.0) Calcium Level 8.2 MG/DL (8.5-10.1) Alkaline Phosphatase 63 U/L (45-117) Aspartate Amino Transf (AST/SGOT) 11 U/L (15-37) Alanine Aminotransferase (ALT/SGPT) 12 U/L (10-53) Total Bilirubin 0.2 MG/DL (0.2-1.0) Sodium Level 139 MEQ/L (136-145) Potassium Level 3.8 MEQ/L (3.5-5.1) Chloride Level 107 MEQ/L (98-107) Carbon Dioxide Level 28.1 MEQ/L (21.0-32.0) Anion Gap 4 MEQ/L (5-15) Estimat Glomerular Filtration Rate 120 ML/MIN (>89) Result Diagram: 11/24/17 0934 11/24/17 0934 Jem Cunningham MD Nov 24, 2017 16:03
[2017-11-24] MEDS ORDERED: SODIUM CHLORID 0.9% 500 ML IV PRN ×2 (17:30→17:45)
[2017-11-24] MEDS ORDERED: CHLORHEXIDINE GLUCONATE 2 % 1 PACK (2 CLOTHS) TOPICAL PRN ×2 (17:30→17:45)
[2017-11-24] MEDS ORDERED: POVIDONE IODINE 5% (ANTISEPSIS KIT) 4 APPLICATIONS EACH NARE PRN ×2 (17:30→17:45)
[2017-11-24] MEDS ORDERED: LACTATED RINGER'S 1000 ML IV PRN ×2 (17:30→17:45)
[2017-11-24] MEDS ORDERED: METOPROLOL TARTRATE 25 MG TAB PO PRN (17:45)
--- NOTE | 2017-11-24 19:33 | PD.CONS ---
History of Present Illness Service Foot and ankle surgery/podiatry Consult Requested By Reason for Consult Possible right foot fracture Primary Care Physician Unknown Diagnoses: History of Present Illness Podiatry consulted for a 67-year-old female with past medical history significant for non-Hodgkin's lymphoma of the small bowel status post bowel resection, COPD, diabetes insipidus, gastritis and migraine headaches for possible right foot fracture. Patient is from [place] and she is on vacation she states she was told prior to leaving that she had a avulsion fracture of the foot. Patient states she was put in a splint and a removable cast. She has been ambulating however she isn't ambulating in the special splint. States she is admitted for a bowel instruction and she may possibly need surgery. She reports pain to right foot and ankle. States she injured her foot after falling and twisting it 3 weeks ago. Review of Systems Constitutional: DENIES: Fever Eyes: DENIES: Blurred vision Respiratory: DENIES: Cough, Shortness of breath Cardiovascular: DENIES: Chest pain Musculoskeletal: COMPLAINS OF: Muscle aches, Stiffness Psychiatric: COMPLAINS OF: Anxiety, Depression, DENIES: Confusion, Mood changes Past Family Social History Allergies: Coded Allergies: codeine (Verified Allergy, Unknown, 11/23/17) Past Medical History As described in history of present illness Past Surgical History As described in history of present illness Active Ordered Medications Current Medications Medications (Trade) Dose Ordered Sig/Vijay Route Start Time Stop Time Status Last Admin (NS Flush) 2 ml UNSCH PRN IV FLUSH 11/23/17 08:00 Potassium Chloride/Dextrose/ Sod Cl 1,000 ml @ 70 mls/hr [id number] IV 11/23/17 11:26 11/24/17 17:20 (Morphine Inj) 2 mg Q4H PRN IV PUSH 11/23/17 11:30 11/24/17 18:31 (Zofran Inj) 4 mg Q6H PRN IV PUSH 11/23/17 11:30 11/23/17 12:24 (Tylenol Supp) 650 mg Q4H PRN RECTAL 11/23/17 11:30 (Ddavp Inj) 1 mcg Q12HR IV PUSH 11/23/17 21:00 11/24/17 08:14 (Duoneb Neb) 1 ampule Q4HR NEB PRN NEB 11/23/17 11:30 (Protonix Inj) 40 mg BID IV PUSH 11/24/17 21:00 Lactated Ringer's 1,000 ml @ 30 mls/hr Q24H PRN IV 11/24/17 17:30 11/27/17 17:29 Sodium Chloride 500 ml @ 30 mls/hr [id number] PRN IV 11/24/17 17:30 11/27/17 17:29 (Betadine 5% Antisepsis Kit) 1 applic TABLEAU ADMINISTRATOR PRN EACH NARE 11/24/17 17:30 11/27/17 17:29 (Chlorhexidine 2% Cloth) 3 pack TABLEAU ADMINISTRATOR PRN TOPICAL 11/24/17 17:30 11/27/17 17:29 Lactated Ringer's 1,000 ml @ 30 mls/hr Q24H PRN IV 11/24/17 17:45 11/27/17 17:44 Sodium Chloride 500 ml @ 30 mls/hr [id number] PRN IV 11/24/17 17:45 11/27/17 17:44 (Lopressor) 25 mg TABLEAU ADMINISTRATOR PRN PO 11/24/17 17:45 11/27/17 17:44 (Betadine 5% Antisepsis Kit) 1 applic TABLEAU ADMINISTRATOR PRN EACH NARE 11/24/17 17:45 11/27/17 17:44 (Chlorhexidine 2% Cloth) 3 pack TABLEAU ADMINISTRATOR PRN TOPICAL 11/24/17 17:45 11/27/17 17:44 Social History Occasional EtOH user nonsmoker Physical Exam Vital Signs Vital Signs Date Time Temp Pulse Resp B/P (MAP) Pulse Ox O2 Delivery O2 Flow Rate FiO2 11/24/17 16:00 95.7 80 19 132/58 (82) 94 11/24/17 12:00 96.1 81 18 115/55 (75) 99 11/24/17 10:17 100 Nasal Cannula 4.00 11/24/17 08:00 96.1 68 18 105/53 (70) 100 11/24/17 00:00 97.3 78 18 100/51 (67) 96 11/23/17 21:27 Nasal Cannula 4.00 11/23/17 20:00 96.7 83 16 116/56 (76) 94 Physical Exam GENERAL: This is a well-nourished, well-developed patient, in no apparent distress. SKIN: No rashes, ecchymoses or lesions. Cool and dry. HEAD: Atraumatic. Normocephalic. EYES: Pupils equal round and reactive. Extraocular motions intact. ENT: Airway patent. RESPIRATORY: Nonlabored breathing MUSCULOSKELETAL: Tenderness to palpation of right foot and ankle NEUROLOGICAL: Awake and alert. Normal speech. Lower extremity physical exam: Vascular: Dorsalis pedis 1/4, posterior tibial 1/4. Capillary refill time within normal limits to digits 5 bilateral foot. Edema present right foot and ankle, localized to lateral aspect. Neuro: Gross sensation intact to bilateral lower extremity. Pinpoint sensation no decrease noted. No hyperalgesia noted to bilateral lower extremity Dermatology: Normal temperature and turgor to bilateral lower extremity. Increased ecchymosis noted to the lateral aspect of the foot and ankle localized to the distal fibula at lateral ankle ligaments and base of the fifth metatarsal. Ecchymosis extends into the dorsal aspect of metatarsophalangeal joints of digits. No open lesions noted. Musculoskeletal: Tender to palpation to at lateral ankle, at ATFL, CFL, and along peroneal tendons. Pain on inversion and eversion active and passive. No pain on dorsiflexion active and passive. Pain on plantar flexion active and passive. Pain on palpation noted to distal fibula. No pain on palpation noted to fifth metatarsal base. Range of motion within normal limits. Laboratory Laboratory Tests Test 11/24/17 09:34 White Blood Count 4.7 Red Blood Count 3.57 Hemoglobin 11.2 Hematocrit 33.5 Mean Corpuscular Volume 93.9 Mean Corpuscular Hemoglobin 31.4 Mean Corpuscular Hemoglobin Concent 33.4 Red Cell Distribution Width 15.4 Platelet Count 217 Mean Platelet Volume 9.5 Neutrophils (%) (Auto) 49.1 Lymphocytes (%) (Auto) 24.0 Monocytes (%) (Auto) 20.2 Eosinophils (%) (Auto) 5.7 Basophils (%) (Auto) 1.0 Neutrophils # (Auto) 2.3 Lymphocytes # (Auto) 1.1 Monocytes # (Auto) 1.0 Eosinophils # (Auto) 0.3 Basophils # (Auto) 0.0 CBC Comment DIFF FINAL Differential Comment Blood Urea Nitrogen 11 Creatinine 0.51 Random Glucose 93 Total Protein 6.3 Albumin 3.0 Calcium Level 8.2 Alkaline Phosphatase 63 Aspartate Amino Transf (AST/SGOT) 11 Alanine Aminotransferase (ALT/SGPT) 12 Total Bilirubin 0.2 Sodium Level 139 Potassium Level 3.8 Chloride Level 107 Carbon Dioxide Level 28.1 Anion Gap 4 Estimat Glomerular Filtration Rate 120 Date/Time Source Procedure Growth Status 11/23/17 11:00 Urine Random Urine Urine Culture - Preliminary Gram Negative Florencio Resulted Result Diagram: 11/24/17 0934 11/24/17 0934 Imaging Last Impressions Foot X-Ray 11/24/17 0000 Signed Impressions: Service Date/Time: Friday, November 24, 2017 11:42 - CONCLUSION: Right foot series within normal limits for Dusty Ruff MD Abdomen X-Ray 11/24/17 0000 Signed Impressions: Service Date/Time: Friday, November 24, 2017 11:35 - CONCLUSION: Dilated air-filled distal small bowel. Similar to recent CT. Scattered gas and stool again seen in the colon. Possible partial small bowel obstruction. Dusty Ruff MD Abdomen/Pelvis CT 11/23/17 0000 Signed Impressions: Service Date/Time: Thursday, November 23, 2017 09:46 - CONCLUSION: 1. Dilated distal small bowel with possible transition point indicating possible early or partial small bowel obstruction. 2. Nonspecific dilated intrahepatic biliary ducts of the left lobe and prominent common duct. Common duct dilatation may be due to the postcholecystectomy state. Dusty Ruff MD Assessment and Plan Assessment and Plan 67-year-old female with possible right lateral fibular avulsion fracture, right ankle and foot sprain Patient examination and evaluation without questions answered Patient reports pain to the lateral ankle, there is pain on palpation to bone and lateral ankle ligaments therefore ankle x-ray indicated Patient is unclear as to if she was told if she had a foot or ankle avulsion fracture Fracture boot to right lower extremity Recommend compression dressing to right foot and ankle to be changed daily consisting of cast padding and Toño bandage We will obtain ankle x-rays and review In the meantime patient to remain limited weightbearing in fracture boot until x -rays evaluated and cleared for full weightbearing Deepali Carey DPM Nov 24, 2017 19:33
[2017-11-24] MEDS: PANTOPRAZOLE SODIUM 40 MG VIAL IV PUSH SCH (19:50)
[2017-11-24 20:00] VITALS: BP 125/60; PULSE 89; RESP 18; TEMP 97.6; O2SAT 98
--- NOTE | 2017-11-24 20:27 | RADRPT ---
EXAM DATE/TIME: 11/24/2017 20:17 [facility] COMPARISON: No previous studies available for comparison. INDICATIONS : Pain from fall. MEDICAL HISTORY : None. SURGICAL HISTORY : None. ENCOUNTER: Initial ACUITY: 2 weeks PAIN SCORE: 3/10 LOCATION: Right lateral ankle. FINDINGS: Three view exam was performed of the right ankle. The bony structures are in normal alignment. No e vidence of fracture, dislocation, or soft tissue swelling. The ankle mortise is intact. No radiopaq ue foreign bodies are seen. Bony mineralization is normal. CONCLUSION: Intact right ankle. Orlando Henning MD on November 24, 2017 at 20:24 Board Certified Radiologist. This report was verified electronically.
[2017-11-25 00:35] VITALS: BP 117/56; PULSE 77; RESP 18; TEMP 97.2; O2SAT 99
[2017-11-25] MEDS: MORPHINE SULFATE 4 MG/ML INJ IV PUSH PRN ×4 (03:45→21:04)
[2017-11-25] MEDS: D5-1/2 NS + KCL 20 MEQ INJ 1,000 ML IV SCH ×2 (05:28→20:38)
[2017-11-25 08:00] VITALS: BP 128/59; PULSE 85; RESP 18; TEMP 97.5; O2SAT 100
[2017-11-25] MEDS: PANTOPRAZOLE SODIUM 40 MG VIAL IV PUSH SCH ×2 (08:21→21:07)
--- NOTE | 2017-11-25 08:37 | PD.POD ---
Subjective Pain score: 5 Remarks Mild right foot pain appears to be improving the majority of her discomfort appears to be from the abdomen Past Med/Surg/Social History Social History Smoking Status: Former Smoker Objective Vital Signs Vital Signs Date Time Temp Pulse Resp B/P (MAP) Pulse Ox O2 Delivery O2 Flow Rate FiO2 11/25/17 08:00 97.5 85 18 128/59 (82) 100 11/25/17 00:35 97.2 77 18 117/56 (76) 99 11/24/17 21:40 Nasal Cannula 4.00 11/24/17 21:26 Nasal Cannula 4.00 11/24/17 20:00 97.6 89 18 125/60 (81) 98 11/24/17 16:00 95.7 80 19 132/58 (82) 94 11/24/17 12:00 96.1 81 18 115/55 (75) 99 11/24/17 10:17 100 Nasal Cannula 4.00 Coded Allergies: codeine (Verified Allergy, Unknown, 11/23/17) Medications and IVs Administered Medications Medications (Trade) Dose Ordered Sig/Vijay Route PRN Reason Start Time Stop Time Status Last Admin Dose Admin Potassium Chloride/Dextrose/ Sod Cl 1,000 ml @ 70 mls/hr [id number] IV 11/23/17 11:26 11/25/17 05:28 Morphine Sulfate (Morphine Inj) 2 mg Q4H PRN IV PUSH PAIN SCALE 1 TO 10 11/23/17 11:30 11/25/17 03:45 Ondansetron HCl (Zofran Inj) 4 mg Q6H PRN IV PUSH NAUSEA 11/23/17 11:30 11/23/17 12:24 Desmopressin Acetate (Ddavp Inj) 1 mcg Q12HR IV PUSH 11/23/17 21:00 11/24/17 19:48 Pantoprazole Sodium (Protonix Inj) 40 mg BID IV PUSH 11/24/17 21:00 11/24/17 19:50 Other Results Last 72 hours Impressions Foot X-Ray 11/24/17 0000 Signed Impressions: Service Date/Time: Friday, November 24, 2017 11:42 - CONCLUSION: Right foot series within normal limits for Dusty Ruff MD Ankle X-Ray 11/24/17 0000 Signed Impressions: Service Date/Time: Friday, November 24, 2017 20:17 - CONCLUSION: Intact right ankle. Orlando Henning MD Abdomen X-Ray 11/24/17 0000 Signed Impressions: Service Date/Time: Friday, November 24, 2017 11:35 - CONCLUSION: Dilated air-filled distal small bowel. Similar to recent CT. Scattered gas and stool again seen in the colon. Possible partial small bowel obstruction. Dusty Ruff MD Abdomen/Pelvis CT 11/23/17 0000 Signed Impressions: Service Date/Time: Thursday, November 23, 2017 09:46 - CONCLUSION: 1. Dilated distal small bowel with possible transition point indicating possible early or partial small bowel obstruction. 2. Nonspecific dilated intrahepatic biliary ducts of the left lobe and prominent common duct. Common duct dilatation may be due to the postcholecystectomy state. Dusty Ruff MD Correlating clinical exam and the x-rays I do feel that there is a minimally displaced distal fibular fracture and there is a small leonila fracture seen at the lateral aspect of the cuboid which may indicate cuboid stress fracture with hindfoot sprain. MRI may be indicated to further help diagnose the severity of the injury Physical Exam General appearance: uncomfortable Details Right lower extremity- moderate edema and bruising of the hindfoot and ankle. Point tenderness of the distal fibula and along the cuboid hindfoot area. All extrinsic tendons appear to be intact good dorsiflexion and plantarflexion inversion and eversion with some guarding. Pedal pulses are palpable sensation intact calf nontender nondistended no soft tissue deficits or pre-ulcerative lesions. Assessment & Plan Diagnosis: (1) Fibula fracture ICD Codes: S82.409A - Unspecified fracture of shaft of unspecified fibula, initial encounter for closed fracture Status: Acute (2) Cuboid fracture ICD Codes: S92.213A - Displaced fracture of cuboid bone of unspecified foot, initial encounter for closed fracture Status: Acute A/P I reviewed the x-rays and correlated clinically and feel the injury may be a little more severe than just a mild sprain however the treatment will continue with CAM walking boot immobilization with partial weight-bear continue compression elevation no surgery indicated for 6-8 weeks. If the patient does not improve within the next 2-3 weeks possible MRI may be indicated however I do not think this will help further the patient's treatment as this is a nonsurgical issue. We discussed physical therapy partial weightbearing and possible knee scooter immobilization upon discharge. Problem Qualifiers (1) Fibula fracture: (2) Cuboid fracture: Khurram Moy DPM Nov 25, 2017 08:37
[2017-11-25] MEDS: DESMOPRESSIN ACETATE 4 MCG/ML VIAL IV PUSH SCH ×2 (09:04→21:06)
--- NOTE | 2017-11-25 10:42 | HHI.PR ---
Subjective Remarks passing out lots of flatus no BM yet though abdomen " slightly sore" appears very very anxious history of depression and severe anxiety disorder and goes into bouts of nause/ vomiting takes Xanax 2-3x a day and an antide[pressant Objective Vitals Vital Signs Date Time Temp Pulse Resp B/P (MAP) Pulse Ox O2 Delivery O2 Flow Rate FiO2 11/25/17 08:00 97.5 85 18 128/59 (82) 100 11/25/17 00:35 97.2 77 18 117/56 (76) 99 11/24/17 21:40 Nasal Cannula 4.00 11/24/17 21:26 Nasal Cannula 4.00 11/24/17 20:00 97.6 89 18 125/60 (81) 98 11/24/17 16:00 95.7 80 19 132/58 (82) 94 11/24/17 12:00 96.1 81 18 115/55 (75) 99 I/O 11/24/17 11/24/17 11/24/17 11/25/17 11/25/17 11/25/17 07:00 15:00 23:00 07:00 15:00 23:00 Intake Total 1000 ml Output Total 400 ml 650 ml 750 ml Balance -400 ml 350 ml -750 ml Intake Oral 0 ml IV Total 1000 ml Output Urine Total 400 ml 500 ml 500 ml Gastric Drainage Total 150 ml 250 ml # Bowel Movements 0 Result Diagram: 11/24/17192411/24/17 0934 Imaging Last Impressions Foot X-Ray 11/24/17 0000 Signed Impressions: Service Date/Time: Friday, November 24, 2017 11:42 - CONCLUSION: Right foot series within normal limits for Dusty Ruff MD Ankle X-Ray 11/24/17 0000 Signed Impressions: Service Date/Time: Friday, November 24, 2017 20:17 - CONCLUSION: Intact right ankle. Orlando Henning MD Abdomen X-Ray 11/24/17 0000 Signed Impressions: Service Date/Time: Friday, November 24, 2017 11:35 - CONCLUSION: Dilated air-filled distal small bowel. Similar to recent CT. Scattered gas and stool again seen in the colon. Possible partial small bowel obstruction. Dusty Ruff MD Abdomen/Pelvis CT 11/23/17 0000 Signed Impressions: Service Date/Time: Thursday, November 23, 2017 09:46 - CONCLUSION: 1. Dilated distal small bowel with possible transition point indicating possible early or partial small bowel obstruction. 2. Nonspecific dilated intrahepatic biliary ducts of the left lobe and prominent common duct. Common duct dilatation may be due to the postcholecystectomy state. 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 on xanax 0.25 mg po q prn Patient is scheduled for EGD today. SBO- conservative management- bouts of recurrent nausea/vomiting ? psychogenic She tolerated her clear liquid diet yesterday. History of GI Lymphoma S/P treatment GS ff, SB series negative continue IVF. monitor electrolytes prn IV pain meds advance to clears per GS UGIB- r/o MW may be from wretching history of GIB - post EGD-in the past gastrtiis GI ff- plan for EGD today. IV PPI Possible right lateral fibular avulsion fracture, right ankle and foot sprain Recent fall about 2 weeks ago- urgent care visit- showed ? avulsion fracture- instructed to ff up with Podiatry when gets back to [place] - appreciate Podiatry consult = cam walker - PT consult - OP ff up with Podiatry in [place] History of DI continue DDVAP (on po as OP ). 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 Marilu Espinal MD Nov 25, 2017 10:42 Yessenia Jesus MD Nov 26, 2017 10:55
[2017-11-25 12:00] VITALS: BP 131/63; PULSE 88; RESP 17; TEMP 96.4; O2SAT 99
--- NOTE | 2017-11-25 12:55 | PD.CAR.PN ---
CVT Progress Note Subjective/Hospital Course: Patient evaluated Full consult dictated Will follow Nathaniel Holm 11/24/17 Patient doing okay today. Abdomen is soft and the definitely less distended with hypoactive bowel sounds, no rebound or guarding Patient states she passed a small amount of gas last night but not much today On KUB there is more gas in the colon and small bowel is somewhat decompressed which is a good sign although patient has NG tube so it is somewhat expected Depending on clinical situation tomorrow I may order a Gastrografin follow- through and see how patient does Again every effort should be made not to operate on the patient considering several prior surgeries, as a stated in my original consult 11/25/17 Abdomen soft hypoactive bowel sounds and patient had passed some gas Small bowel follow-through today Based on the findings we'll decide if this patient requires exploration and lysis of adhesions or we can manage her conservatively Discussed at length with her in the room while patient was at the study Objective: Vital Signs Date Time Temp Pulse Resp B/P (MAP) Pulse Ox O2 Delivery O2 Flow Rate FiO2 11/25/17 12:00 96.4 88 17 131/63 (85) 99 11/25/17 08:00 97.5 85 18 128/59 (82) 100 11/25/17 08:00 100 Nasal Cannula 4.00 11/25/17 00:35 97.2 77 18 117/56 (76) 99 11/24/17 21:40 Nasal Cannula 4.00 11/24/17 21:26 Nasal Cannula 4.00 11/24/17 20:00 97.6 89 18 125/60 (81) 98 11/24/17 16:00 95.7 80 19 132/58 (82) 94 Result Diagram: 11/24/17 1925 11/24/17 0934 Jem Cunningham MD Nov 25, 2017 12:55
[2017-11-25] MEDS ORDERED: DIATRIZOATE MEGLUM/DIATRIZOATE SOD 120 ML BTL (for RAD DIAG) NG ONE (13:03)
[2017-11-25] MEDS: ONDANSETRON HCL 4 MG/2 ML VIAL IV PUSH PRN (13:09)
--- NOTE | 2017-11-25 14:42 | RADRPT ---
EXAM DATE/TIME: 11/25/2017 11:37 [facility] COMPARISON: No previous studies available for comparison. INDICATIONS : Abdominal pain, nausea and vomiting FLUORO TIME: 2.4 minutes IMAGE COUNT: 14 CONTRAST: Gastrotiffanie IMAGING TIME(S): 15 min, 30 min, 45 min, 1 hr, 1.5 hrs2 hr MEDICAL HISTORY : Diabetes mellitus type II. SURGICAL HISTORY : Inguinal hernia repair. Colon resection. Cholecystectomy. ENCOUNTER: Initial ACUITY: 4 - 6 days PAIN SCORE: 5/10 LOCATION: Abdomen FINDINGS: Preliminary film is unremarkable. The stomach is grossly unremarkable. Examination of the small bowel demonstrates normal mucosal pattern involving the jejunum and ileum. There is no evidence of mass or obstruction. No intraluminal filling defects are identified. Small bowel transit time is normal at 120 minutes. Fluoroscopy of the abdomen and terminal ileum demonstra angel no abnormality. CONCLUSION: Unremarkable small bowel examination. There is no correlative abnormality is to prior CT scan of 13 J anuary 2018. Nasogastric tube is in the stomach. This may be decompressed. This examination will be f ollowed with noncontrast CT scan of the abdomen and pelvis to exclude any occult abnormality Johny Tovar MD on November 25, 2017 at 14:38 Board Certified Radiologist. This report was verified electronically.
--- NOTE | 2017-11-25 15:42 | EKG ---
Date Performed: 11/24/2017 Time Performed: 16:41:37 PTAGE: 67 years EKG: Sinus rhythm WITH FREQUENT VENTRICULAR PREMATURE COMPLEXES MARKED LEFT AXIS DEVIATION ANTEROSEPTAL MYOCARDIAL INF ARCTION , OF INDETERMINATE AGE ABNORMAL ECG NO PREVIOUS TRACING DOCTOR: Albert Fuentes Interpretating Date/Time 11/25/2017 15:41:33
[2017-11-25 16:00] VITALS: BP 127/78; PULSE 95; RESP 17; TEMP 98; O2SAT 98
--- NOTE | 2017-11-25 16:00 | RADRPT ---
EXAM DATE/TIME: 11/25/2017 15:00 [facility] COMPARISON: SMALL BOWEL SERIES W/GASTROGRAFIN, November 25, 2017, 11:37. CT ABDOMEN & PELVIS W/O CONTRAST, Ute 2017, 9:46. INDICATIONS : Follow up small bowel series,obstruction ORAL CONTRAST: No oral contrast ingested. RADIATION DOSE: 6.64 CTDIvol (mGy) MEDICAL HISTORY : Lymphoma. SURGICAL HISTORY : Colon resection. Bowel rescection,hernia repair ENCOUNTER: Initial ACUITY: 1 day PAIN SCALE: 5/10 LOCATION: Abdomen TECHNIQUE: Volumetric scanning of the abdomen and pelvis was performed. Using automated exposure control and ad justment of the mA and/or kV according to patient size, radiation dose was kept as low as reasonably achievable to obtain optimal diagnostic quality images. DICOM format image data is available electro nically for review and comparison. FINDINGS: There is contrast throughout the stomach small bowel and colon. The small bowel caliber is normal siz e without wall thickening anterolaterally is seen into the cecum without evidence of obstruction lesi on or adenopathy. The colon itself is normal. There is a nasogastric tube in place in the stomach. With no evidence of free air, free fluid, abdominal mass or adenopathy. Small midline abdominal hernia is ap preciated. CONCLUSION: No acute intra-abdominal or pelvic process. Benign bowel gas pattern with no evidence of obstruction, adenopathy or mass . Small midline abdominal hernia. Johny Tovar MD on November 25, 2017 at 15:50 Board Certified Radiologist. This report was verified electronically.
--- NOTE | 2017-11-25 16:33 | HHI.GIFU ---
Subjective Remarks pt resting in bed, at bedside. Just back from SBFT and CT. NGT has been removed. She is passing flatus and having liquid stool. She is somewhat tremulous. Still with abd discomfort. Vomited some contrast. No report of blood. Distended. (Jami Lyle) Objective Vitals I&O Vital Signs Date Time Temp Pulse Resp B/P (MAP) Pulse Ox O2 Delivery O2 Flow Rate FiO2 11/25/17 16:00 98.0 95 17 127/78 (94) 98 11/25/17 12:00 96.4 88 17 131/63 (85) 99 11/25/17 12:00 99 Nasal Cannula 4.00 11/25/17 08:00 97.5 85 18 128/59 (82) 100 11/25/17 08:00 100 Nasal Cannula 4.00 11/25/17 00:35 97.2 77 18 117/56 (76) 99 11/24/17 21:40 Nasal Cannula 4.00 11/24/17 21:26 Nasal Cannula 4.00 11/24/17 20:00 97.6 89 18 125/60 (81) 98 I/O 11/24/17 11/24/17 11/24/17 11/25/17 11/25/17 11/25/17 07:00 15:00 23:00 07:00 15:00 23:00 Intake Total 1000 ml Output Total 400 ml 650 ml 750 ml 100 ml Balance -400 ml 350 ml -750 ml -100 ml Intake Oral 0 ml IV Total 1000 ml Output Urine Total 400 ml 500 ml 500 ml Gastric Drainage Total 150 ml 250 ml 100 ml # Bowel Movements 0 Laboratory Laboratory Tests Test 11/24/17 19:25 Hemoglobin 12.0 Hematocrit 35.0 Prothrombin Time 10.0 Prothromb Time International Ratio 1.0 Date/Time Source Procedure Growth Status 11/23/17 11:00 Urine Random Urine Urine Culture - Final Klebsiella Pneumoniae Complete Imaging Last Impressions Abdomen/Pelvis CT 11/25/17 1508 Signed Impressions: Service Date/Time: Saturday, November 25, 2017 15:00 - CONCLUSION: No acute intra-abdominal or pelvic process. Benign bowel gas pattern with no evidence of obstruction, adenopathy or mass . Small midline abdominal hernia. Johny Tovar MD Small Bowel X-Ray 11/25/17 0000 Signed Impressions: Service Date/Time: Saturday, November 25, 2017 11:37 - CONCLUSION: Unremarkable small bowel examination. There is no correlative abnormality is to prior CT scan of 23 November 2017. Nasogastric tube is in the stomach. This may be decompressed. This examination will be followed with noncontrast CT scan of the abdomen and pelvis to exclude any occult abnormality Johny Tovar MD Foot X-Ray 11/24/17 0000 Signed Impressions: Service Date/Time: Friday, November 24, 2017 11:42 - CONCLUSION: Right foot series within normal limits for Dusty Ruff MD Ankle X-Ray 11/24/17 0000 Signed Impressions: Service Date/Time: Friday, November 24, 2017 20:17 - CONCLUSION: Intact right ankle. Orlando Henning MD Abdomen X-Ray 11/24/17 0000 Signed Impressions: Service Date/Time: Friday, November 24, 2017 11:35 - CONCLUSION: Dilated air-filled distal small bowel. Similar to recent CT. Scattered gas and stool again seen in the colon. Possible partial small bowel obstruction. Dusty Ruff MD Physical Exam HEENT: PERRL normocephalic; atraumatic; no jaundice. CHEST: wheezes CARDIAC: irr HR ABDOMEN: semifirm, distended, diffusely TTP; no hepatosplenomegaly; bowel sounds are present in all four quadrants. EXTREMITIES: No clubbing, cyanosis, or edema. SKIN: Normal; no rash; no jaundice. MEDICAL OFFICE WORKER: No focal deficits; alert and oriented times three. (Jami Lyle [facility]) Assessment and Plan Plan Assessment: - Coffee ground emesis- CGE noted previously in NGT output. pt being treated for SBO and being managed non-operatively with NGT for decompression and IVF. CT abdomen and pelvis W/O IV contrast (11/23) --> Dilated distal small bowel with possible transition point indication possible early or partial small bowel obstruction. Nonspecific dilated intrahepatic biliary ducts of the left lobe and prominent common duct. Common duct dilation may be due to the postcholecystectomy state. GS following, feel bowel obstruction is most likely secondary to adhesiolysis from bowel resection in the past, NGT has been removed and she is on clears SBFT unremarkable, fu CT no acute intraabd or pelvic process, benign bowel gas pattern no evidence obstruction. HH WNL and improved from yesterday no further CGE Plan: - EGD prior to d/c vs outpt - diet per GS - Protonix - Heparin on hold - Pain control - Supportive care - Further recommendations to follow based on results of above Pt has been seen and examined by myself and Dr. Newman and this note is on his behalf (Jami Lyle) Physician Comments Patient seen and examined Agree with above Continue with current supportive care Monitor labs Plan for an EGD tomorrow (Fer Newman MD) Jami Lyle Nov 25, 2017 16:33 Fer Newman MD Nov 26, 2017 00:03
[2017-11-25] MEDS ORDERED: DIAZEPAM 5 MG TAB PO ONE (17:00)
[2017-11-25 20:00] VITALS: BP 108/53; PULSE 79; RESP 20; TEMP 98.6; O2SAT 99
[2017-11-26] VITALS (8 sets, daily range): BP systolic 103–149; BP diastolic 51–68; PULSE 68–82; RESP 16–20; TEMP 96.6–98.4; O2SAT 97–100
[2017-11-26] MEDS: D5-1/2 NS + KCL 20 MEQ INJ 1,000 ML IV SCH ×3 (04:08→14:58)
[2017-11-26] MEDS: MORPHINE SULFATE 4 MG/ML INJ IV PUSH PRN ×3 (04:14→20:21)
[2017-11-26] MEDS: PANTOPRAZOLE SODIUM 40 MG VIAL IV PUSH SCH ×2 (08:39→20:14)
[2017-11-26] MEDS: DESMOPRESSIN ACETATE 4 MCG/ML VIAL IV PUSH SCH ×2 (08:39→20:14)
[2017-11-26] MEDS: VORTIOXETINE 20 MG PO SCH (09:00)
[2017-11-26] MEDS: ONDANSETRON HCL 4 MG/2 ML VIAL IV PUSH PRN ×2 (09:42→19:33)
[2017-11-26] MEDS: ALPRAZolam 0.25 MG TAB PO PRN (09:43)
--- NOTE | 2017-11-26 10:53 | HHI.PR ---
Subjective Remarks Follow-up for small bowel obstruction and upper GI bleed Patient stated that she feels nauseous and asking for medication. Deny any emesis. Patient scheduled for EGD today. Pain has improved but continues have pain. She remains afebrile. Otherwise she has no other complaints. Patient also asking for anxiety medication. Objective Vitals Vital Signs Date Time Temp Pulse Resp B/P (MAP) Pulse Ox O2 Delivery O2 Flow Rate FiO2 11/26/17 09:15 98 Nasal Cannula 4.00 11/26/17 09:07 97 Nasal Cannula 4.00 11/26/17 08:00 97.3 68 16 110/59 (76) 98 11/26/17 04:00 96.6 74 20 112/68 (83) 99 11/26/17 00:00 97.7 75 20 103/51 (68) 97 11/25/17 22:11 Nasal Cannula 4.00 11/25/17 20:00 98.6 79 20 108/53 (71) 99 11/25/17 16:00 98.0 95 17 127/78 (94) 98 11/25/17 12:00 96.4 88 17 131/63 (85) 99 11/25/17 12:00 99 Nasal Cannula 4.00 I/O 11/25/17 11/25/17 11/25/17 11/26/17 11/26/17 11/26/17 07:00 15:00 23:00 07:00 15:00 23:00 Intake Total 180 ml 1240 ml Output Total 750 ml 100 ml 600 ml 200 ml Balance -750 ml -100 ml -420 ml 1040 ml Intake Oral 180 ml 240 ml IV Total 1000 ml Output Urine Total 500 ml 600 ml 200 ml Gastric Drainage Total 250 ml 100 ml # Voids 1 # Bowel Movements 1 1 Result Diagram: 11/24/17192411/24/17 0934 Objective Remarks GENERAL: in NAD but is anxious SKIN: Warm and dry. HEAD: Normocephalic. EYES: No scleral icterus. No injection or drainage. NECK: Supple, trachea midline. No JVD or lymphadenopathy. CARDIOVASCULAR: Regular rate and rhythm without murmurs, gallops, or rubs. RESPIRATORY: Breath sounds equal bilaterally. No accessory muscle use. GASTROINTESTINAL: Abdomen soft,mild TTP, nondistended. MUSCULOSKELETAL: No cyanosis, or edema. BACK: Nontender without obvious deformity. No CVA tenderness. Medications and IVs Current Medications Ondansetron HCl (Zofran Inj) 4 mg ONCE ONCE IVP Last administered on 09:12; Start 11/23/17 at 08:00; Stop 11/23/17 at 08:01; Status DC Sodium Chloride 1,000 ml @ 1,000 mls/hr Q1H IV Last administered on 11/23/17 09:13; Start 11/23/17 at 07:59; Stop 11/23/17 at 08:58; Status DC Sodium Chloride (NS Flush) 2 ml UNSCH PRN IV FLUSH FLUSH AFTER USING IV ACCESS ; Start 11/23/17 at 08:00 Famotidine (Pepcid Inj) 20 mg ONCE ONCE IV PUSH Last administered on at 09:12; Start 11/23/17 at 08:00; Stop 11/23/17 at 08:01; Status DC Al Hydrox/Mg Hydrox/Simethicone (Mag-Al Plus Susp Liq) 30 ml ONCE ONCE PO Last administered on 11/23/17at 09:13; Start 11/23/17 at 08:00; Stop 11/23/17 at 08:01; Status DC Lidocaine HCl (Xylocaine 2% Viscous) 15 ml ONCE ONCE PO Last administered on at 09:13; Start 11/23/17 at 08:00; Stop 11/23/17 at 08:01; Status DC Diazepam (Valium) 5 mg ONCE ONCE PO Last administered on 11/23/17at 10:12; Start 11/23/17 at 10:00; Stop 11/23/17 at 10:01; Status DC Potassium Chloride/Dextrose/ Sod Cl 1,000 ml @ 70 mls/hr [id number] IV Last administered on 11/26/17at 04:08; Start 11/23/17 at 11:26 Morphine Sulfate (Morphine Inj) 2 mg Q4H PRN IV PUSH PAIN SCALE 1 TO 10 Last administered on 11/26/17at 08:39; Start 11/23/17 at 11:30 Ondansetron HCl (Zofran Inj) 4 mg Q6H PRN IV PUSH NAUSEA Last administered on 09:42; Start 11/23/17 at 11:30 Acetaminophen (Tylenol Supp) 650 mg Q4H PRN RECTAL FEVER; Start 11/23/17 at 11: 30 Pantoprazole Sodium (Protonix Inj) 40 mg DAILY IV PUSH Last administered on at 08:14; Start 11/24/17 at 09:00; Stop 11/24/17 at 13:45; Status DC Heparin Sodium (Porcine) (Heparin Inj) 5,000 units Q12H SQ Last administered on 11/24/17at 01:37; Start 11/23/17 at 13:00; Stop 11/24/17 at 11:44; Status DC Desmopressin Acetate (Ddavp Inj) 1 mcg Q12HR IV PUSH Last administered on at 08:39; Start 11/23/17 at 21:00 Albuterol/ Ipratropium (Duoneb Neb) 1 ampule Q4HR NEB PRN NEB SOB/WHeezing; Start 11/23/17 at 11:30 Ceftriaxone Sodium 1000 mg/ Sodium Chloride 100 ml @ 200 mls/hr ONCE ONCE IV Last administered on 11/23/17at 12:22; Start 11/23/17 at 12:00; Stop 11/23/17 at 12:29; Status DC Lactulose (Lactulose Liq) 60 ml ONCE ONCE NG Last administered on 11/24/17at 13 :36; Start 11/24/17 at 12:45; Stop 11/24/17 at 13:03; Status DC Pantoprazole Sodium (Protonix Inj) 40 mg BID IV PUSH Last administered on at 08:39; Start 11/24/17 at 21:00 Lactated Ringer's 1,000 ml @ 30 mls/hr Q24H PRN IV SEE LABEL COMMENTS; Start at 17:30; Stop 11/27/17 at 17:29 Sodium Chloride 500 ml @ 30 mls/hr [id number] PRN IV SEE LABEL COMMENTS; Start at 17:30; Stop 11/27/17 at 17:29 Povidone Iodine (Betadine 5% Antisepsis Kit) 1 applic WELLNESS AMBASSADOR PRN EACH NARE SEE LABEL COMMENTS; Start 11/24/17 at 17:30; Stop 11/27/17 at 17:29 Chlorhexidine Gluconate (Chlorhexidine 2% Cloth) 3 pack WELLNESS AMBASSADOR PRN TOPICAL SEE LABEL COMMENTS; Start 11/24/17 at 17:30; Stop 11/27/17 at 17:29 Lactated Ringer's 1,000 ml @ 30 mls/hr Q24H PRN IV SEE LABEL COMMENTS; Start at 17:45; Stop 11/27/17 at 17:44; Status Cancel Sodium Chloride 500 ml @ 30 mls/hr [id number] PRN IV SEE LABEL COMMENTS; Start at 17:45; Stop 11/27/17 at 17:44; Status Cancel Metoprolol Tartrate (Lopressor) 25 mg WELLNESS AMBASSADOR PRN PO SEE LABEL COMMENTS; Start 11/24/17 at 17:45; Stop 11/27/17 at 17:44 Povidone Iodine (Betadine 5% Antisepsis Kit) 1 applic WELLNESS AMBASSADOR PRN EACH NARE SEE LABEL COMMENTS; Start 11/24/17 at 17:45; Stop 11/27/17 at 17:44; Status Cancel Chlorhexidine Gluconate (Chlorhexidine 2% Cloth) 3 pack WELLNESS AMBASSADOR PRN TOPICAL SEE LABEL COMMENTS; Start 11/24/17 at 17:45; Stop 11/27/17 at 17:44; Status Cancel Diatrizoate Meglum/ Diatrizoate Sod ( Gastroview Liq) 240 ml STK-MED ONCE NG Last administered on 11/25/17at 13:03; Start 11/25/17 at 13:03; Stop 11/25/17 at 13:05; Status DC Diazepam (Valium) 5 mg ONCE ONCE PO Last administered on 11/25/17at 18:34; Start 11/25/17 at 17:00; Stop 11/25/17 at 17:01; Status DC Patient Own Medication PT OWN MED: (Vortioxetine (Trintellix)... 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 on xanax 0.25 mg po q prn Patient is scheduled for EGD today. SBO- conservative management- bouts of recurrent nausea/vomiting ? psychogenic She is tolerating her diet but continues complain about feeling nauseous. General surgeon following. History of GI Lymphoma S/P treatment GS ff, SB series negative continue IVF. monitor electrolytes prn IV pain meds advance to clears per UGIB- r/o MW may be from wretching history of GIB - post EGD-in the past gastritis GI ff- plan for EGD today. IV PPI Possible right lateral fibular avulsion fracture, right ankle and foot sprain Recent fall about 2 weeks ago- urgent care visit- showed ? avulsion fracture- instructed to ff up with Podiatry when gets back to [place] - appreciate Podiatry consult - cam walker - PT consult - OP ff up with Podiatry in [place] History of DI continue DDVAP (on po as OP ). 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
[2017-11-26] MEDS ORDERED: LIDOCAINE HCL 1% PF 5 ML SYRINGE OTHER ONE (12:00)
[2017-11-26] MEDS ORDERED: ONDANSETRON HCL 4 MG/2 ML VIAL IV ONE (12:00)
[2017-11-26] MEDS ORDERED: PROPOFOL 200 MG/20 ML AMP IV ONE (12:00)
[2017-11-26] MEDS ORDERED: DEXAMETHASONE SOD PHOS 4 MG/ML VIAL IV ONE (12:00)
[2017-11-26] MEDS ORDERED: DO NOT ADM ANY ANTICOAGULANT DRUGS PRN (13:48)
--- NOTE | 2017-11-26 13:58 | PD.PROCEDR ---
GI Procedure PROCEDURE PERFORMED EGD with biopsy INDICATION FOR PROCEDURE Coffee-ground emesis, small bowel obstruction PROCEDURE: The procedure, risks and benefits were discussed with Ms. Rodriguez and informed consent was obtained. Anesthesia sedated her with Diprivan. She was placed in the left lateral decubitus position. EGD: The Pentax videoscope was introduced through the oropharynx and advanced to the second portion of the duodenum under direct visualization. Retroflexion was performed in the stomach. FINDINGS: The esophagus this appeared to be unremarkable and within normal limits except for a mild Schatzki ring Stomach there was patchy erythema in both the cardia the upper gastric body and the antrum antral biopsies were taken for further evaluation there was also a mild to moderate hiatal hernia no ulcerations or erosions were seen no blood or bleeding Duodenum there was patchy erythema in the duodenal bulb this was biopsied otherwise it was unremarkable and within normal limits ESTIMATED BLOOD LOSS: None SPECIMENS REMOVED: Gastric and duodenal biopsies COMPLICATIONS: None IMPRESSION: Schatzki ring mild Hiatal hernia and mild to moderate Gastritis Duodenitis PLAN: Await biopsies Continue PPI Advance diet Monitor labs Continue current supportive care Fer Newman MD Nov 26, 2017 13:58
--- NOTE | 2017-11-26 17:38 | PD.CAR.PN ---
CVT Progress Note Subjective/Hospital Course: Patient evaluated Full consult dictated Will follow Nathaniel Holm 11/24/17 Patient doing okay today. Abdomen is soft and the definitely less distended with hypoactive bowel sounds, no rebound or guarding Patient states she passed a small amount of gas last night but not much today On KUB there is more gas in the colon and small bowel is somewhat decompressed which is a good sign although patient has NG tube so it is somewhat expected Depending on clinical situation tomorrow I may order a Gastrografin follow- through and see how patient does Again every effort should be made not to operate on the patient considering several prior surgeries, as a stated in my original consult 11/25/17 Abdomen soft hypoactive bowel sounds and patient had passed some gas Small bowel follow-through today Based on the findings we'll decide if this patient requires exploration and lysis of adhesions or we can manage her conservatively Discussed at length with her in the room while patient was at the study 11/26/17 Abdomen is soft active bowel sounds Small bowel study reveals normal passage of the contrast into the small intestine and patient now has of course diarrhea from the contrast She still complains about some pain in the abdomen but there is no rebound or guarding and abdomen is completely decompressed Patient is advanced to mechanical diet and from my point can be discharged any time GI consult and podiatry consult R greatly appreciated Objective: Vital Signs Date Time Temp Pulse Resp B/P (MAP) Pulse Ox O2 Delivery O2 Flow Rate FiO2 11/26/17 16:00 98.4 82 16 149/64 (92) 100 11/26/17 14:00 66 20 112/56 (74) 99 Nasal Cannula 2 11/26/17 13:44 97.4 79 20 117/56 (76) 98 Nasal Cannula 2 11/26/17 12:00 96.9 73 18 114/65 (81) 99 11/26/17 09:15 98 Nasal Cannula 4.00 11/26/17 09:07 97 Nasal Cannula 4.00 11/26/17 08:00 97.3 68 16 110/59 (76) 98 11/26/17 04:00 96.6 74 20 112/68 (83) 99 11/26/17 00:00 97.7 75 20 103/51 (68) 97 11/25/17 22:11 Nasal Cannula 4.00 11/25/17 20:00 98.6 79 20 108/53 71 99 Result Diagram: 11/24/17 1925 11/24/17 0934 Jem Cunningham MD Nov 26, 2017 17:38
[2017-11-27] VITALS: BP 110/58; PULSE 69; RESP 18; TEMP 97.6; O2SAT 99
[2017-11-27] MEDS: MORPHINE SULFATE 4 MG/ML INJ IV PUSH PRN ×2 (04:59→10:37)
[2017-11-27] MEDS: ONDANSETRON HCL 4 MG/2 ML VIAL IV PUSH PRN (05:20)
[2017-11-27] MEDS: D5-1/2 NS + KCL 20 MEQ INJ 1,000 ML IV SCH (05:37)
[2017-11-27] MEDS: VORTIOXETINE 20 MG PO SCH (07:49)
[2017-11-27] MEDS: ALPRAZolam 0.25 MG TAB PO PRN (07:52)
[2017-11-27] MEDS: PANTOPRAZOLE SODIUM 40 MG VIAL IV PUSH SCH (07:53)
[2017-11-27] MEDS: DESMOPRESSIN ACETATE 4 MCG/ML VIAL IV PUSH SCH (07:53)
[2017-11-27 08:00] VITALS: BP 121/59; PULSE 71; RESP 18; TEMP 96.8; O2SAT 100
[2017-11-27] MEDS ORDERED: WALKER WHEELS/F1 MIS (09:10)
--- NOTE | 2017-11-27 09:11 | HHI.FF ---
Face to Face Verification Diagnosis: (1) Physical deconditioning (2) Small bowel obstruction (3) Cuboid fracture (4) Fibula fracture Physical Therapy Order: Evaluate and Treat, Improve ambulation, Strength and gait training Home Health Nursing Order: Medical education Signs/symptoms of disease process Medication education-adverse effect I have seen patient Madonna Rodriguez on 11/27/17. My clinical findings support the need for the requested home health care services because: Ltd mobility - disease progression I certify that my clinical findings support that this patient is homebound because: Unsteady gait/balance Yessenia Jesus MD Nov 27, 2017 09:11
[2017-11-27] MEDS ORDERED: SULFAMETHOXAZOLE-TRIMETHOPRIM DS 800-160 MG TAB PO SCH (09:15)
[2017-11-27] MEDS ORDERED: PROT40TA PO (10:17)
[2017-11-27] MEDS ORDERED: NORC5TAB PO (10:17)
[2017-11-27] MEDS ORDERED: DESM1TAB15 PO (10:17)
[2017-11-27] MEDS ORDERED: SULF1TAB23 PO (10:17)
[2017-11-27] MEDS ORDERED: ZOFR4TAB3 SL (10:17)
--- NOTE | 2017-11-27 10:22 | HHI.DS ---
Discharge Summary Admission Date Nov 23, 2017 at 11:05 Discharge Date: Nov 27, 2017 Admitting Diagnosis Small bowel obstruction (1) Cuboid fracture ICD Code: S92.213A - Displaced fracture of cuboid bone of unspecified foot, initial encounter for closed fracture Diagnosis: Principal Status: Acute (2) Physical deconditioning ICD Code: R53.81 - Other malaise Diagnosis: Secondary (3) Fibula fracture ICD Code: S82.409A - Unspecified fracture of shaft of unspecified fibula, initial encounter for closed fracture Diagnosis: Principal Status: Acute (4) Gastritis and duodenitis ICD Code: K29.90 - Gastroduodenitis, unspecified, without bleeding Diagnosis: Principal (5) Hiatal hernia ICD Code: K44.9 - Diaphragmatic hernia without obstruction or gangrene Diagnosis: Secondary (6) Schatzki's ring ICD Code: K22.2 - Esophageal obstruction Diagnosis: Secondary (7) UTI (urinary tract infection) ICD Code: N39.0 - Urinary tract infection, site not specified Diagnosis: Principal Procedures See hospital course. Brief History - From Admission 67-year-old female with a past medical history significant for non-Hodgkin's lymphoma, COPD on home oxygen, diabetes insipidus and migraine headaches presents to the emergency department for evaluation of abdominal pain. The patient states she began having crampy, spasm-like generalized abdominal pain on . She endorses associated nausea and vomiting. Denies fever/ chills. Last bowel movement was small volume, occurring this morning. CT of the abdomen/pelvis consistent with early versus partial small bowel obstruction. Patient has had multiple abdominal surgeries in the past. CBC/BMP: 11/24/17 1925 11/24/17 0934 Significant Findings Laboratory Tests Test 11/24/17 19:25 Imaging Last Impressions Abdomen/Pelvis CT 11/25/17 1508 Signed Impressions: Service Date/Time: Saturday, November 25, 2017 15:00 - CONCLUSION: No acute intra-abdominal or pelvic process. Benign bowel gas pattern with no evidence of obstruction, adenopathy or mass . Small midline abdominal hernia. Johny Tovar MD Small Bowel X-Ray 1/15/18 0000 Signed Impressions: Service Date/Time: Saturday, November 25, 2017 11:37 - CONCLUSION: Unremarkable small bowel examination. There is no correlative abnormality is to prior CT scan of 23 November 2017. Nasogastric tube is in the stomach. This may be decompressed. This examination will be followed with noncontrast CT scan of the abdomen and pelvis to exclude any occult abnormality Johny Tovar MD Foot X-Ray 11/24/17 0000 Signed Impressions: Service Date/Time: Friday, November 24, 2017 11:42 - CONCLUSION: Right foot series within normal limits for Dusty Ruff MD Ankle X-Ray 11/24/17 0000 Signed Impressions: Service Date/Time: Friday, November 24, 2017 20:17 - CONCLUSION: Intact right ankle. Orlando Henning MD Abdomen X-Ray 11/24/17 0000 Signed Impressions: Service Date/Time: Friday, November 24, 2017 11:35 - CONCLUSION: Dilated air-filled distal small bowel. Similar to recent CT. Scattered gas and stool again seen in the colon. Possible partial small bowel obstruction. Dusty Ruff MD PE at Discharge GENERAL: in NAD and is more calm today NECK: Supple, trachea midline. No JVD or lymphadenopathy. CARDIOVASCULAR: Regular rate and rhythm without murmurs, gallops, or rubs. RESPIRATORY: Breath sounds equal bilaterally. No accessory muscle use. GASTROINTESTINAL: Abdomen soft, nontender to palpation. Nondistended. MUSCULOSKELETAL: No cyanosis, or edema. BACK: Nontender without obvious deformity. No CVA tenderness. Pt update on day of discharge Follow-up for nausea and abdominal pain Patient doesn't complain of abdominal pain today. She stated she does feel better but continues to feel nauseous. Patient stated that nausea has improved and usually Zofran helps with that. Per nurse she noticed that nausea occurs with the pain medication. Patient stated that she is able to tolerate oral intake. She stated she ate her breakfast and did not vomit at all. She remains afebrile. She has no other complaints. Denied any urinary symptoms. Patient declined any home health. She stated that she is able to do everything herself. She stated that she was evaluated she was very weak. Patient stated that she was an [place] and will be leaving soon. Hospital Course 67-year-old female who was admitted for abdominal pain and nausea. She also had possible upper GI bleed. Imaging of labs were obtained which CT scan suggest possible small bowel obstruction. Patient was having bowel movements. GI and general surgeon consulted in which general surgeon stated that patient does not have small bowel obstruction. Patient was able to tolerate oral intake but just felt nauseous. She does have anxiety and her symptoms seems to be worsened with anxiety. When patient gets her Xanax her symptoms seem to improve. She also had an EGD done during hospital course which showed Schatzki ring mild, Hiatal hernia and mild to moderate, Gastritis, and Duodenitis. Later her urine cultures grew Klebsiella pneumoniae in which she was put on Bactrim since cultures were pansensitive. This could be causing her nausea. Nausea did improve with Zofran and also improving her anxiety improved. Questionable nausea was also related to pain medication. At the time her discharge pain drastically improved. Patient also was found to have a right lateral fibular avulsion fraction and podiatry is consulted. Epic Anesthesia Analyst recommend Cam Walker boot immobilization with partial weight-bear continue compression elevation no surgery indicated for 6-8 weeks and stated that if symptoms are not improving 2-3 weeks can do a MRI but does not think that this would casino change attendant. Pt Condition on Discharge: Stable Discharge Disposition: Disch w/ Home Health Serv Discharge Time: > 30 minutes Discharge Instructions DIET: Follow Instructions for: As Tolerated, No Restrictions Activities you can perform: See Additionl Instruction Other Activity Instructions: CAM walker boot partial weight-bearing continue with compression. If no improvement in 2-3 weeks will need an MRI. Follow up Referrals: Gastroenterology - 1 Week with Fer Newman MD PCP Follow-up - 1 Week Podiatry - 3 Weeks New Medications: Desmopressin (Desmopressin) 0.1 Mg Tab 0.1 MG PO BID for diabetes insipidious , #60 TAB 0 Refills Hydrocodone-Acetaminophen ([place]) 5 Mg-325 Mg Tab 1 TAB PO Q6H PRN for PAIN, #15 TAB 0 Refills Ondansetron Odt (Zofran Odt) 4 Mg Tab 4 MG SL Q6HR PRN for Nausea/Vomiting, #20 TAB 0 Refills Pantoprazole (Protonix) 40 Mg Tab 40 MG PO DAILY for Ulcer Prevention, #30 TAB 0 Refills Walker with Front Wheels (Walker with Front Wheels) 1 Mis Mis EA .ROUTE DIRECTED for physical deconditioned, #1 0 Refills Sulfamethoxazole-Trimethoprim (Sulfamethoxazole-Trimethoprim) 800-160 Mg Tab 1 TAB PO Q12HR for infection, #28 TAB 0 Refills Continued Medications: Vortioxetine (Trintellix) 20 Mg Tab 20 MG PO DAILY for Control Depression, #30 TAB 0 Refills Yessenia Jesus MD Nov 27, 2017 10:22
[2017-11-27 11:01] VITALS: O2SAT 100
[2017-11-27 11:24] VITALS: RESP 17
== END 2017-11-27 11:44 | disposition home health service (06) | DRG 389 ==
LOC: NEPC 07:30 → NEDA 11:05 → N07A 16:25
PROVIDERS: ADMIT Family Medicine; ATTEND Family Medicine
PROC: 0DB78ZX Excision of Stomach, Pylorus, Via Natural or Artificial Opening Endoscopic, Diagnostic (ICD-10-PCS; 2017-11-26)
PROC: 0DB98ZX Excision of Duodenum, Via Natural or Artificial Opening Endoscopic, Diagnostic (ICD-10-PCS; principal; 2017-11-26 13:03)
DX: K56.600 Partial intestinal obstruction, unspecified as to cause (principal); E23.2 Diabetes insipidus; C85.90 Non-Hodgkin lymphoma, unspecified, unspecified site; Z99.81 Dependence on supplemental oxygen; K22.2 Esophageal obstruction; B96.1 Klebsiella pneumoniae [K. pneumoniae] as the cause of diseases classified elsewhere; N39.0 Urinary tract infection, site not specified; K92.2 Gastrointestinal hemorrhage, unspecified; J44.9 Chronic obstructive pulmonary disease, unspecified; E86.0 Dehydration; E78.5 Hyperlipidemia, unspecified; K44.9 Diaphragmatic hernia without obstruction or gangrene; F41.9 Anxiety disorder, unspecified; F32.9 Major depressive disorder, single episode, unspecified; K29.70 Gastritis, unspecified, without bleeding; K29.80 Duodenitis without bleeding; S92.211D Displaced fracture of cuboid bone of right foot, subsequent encounter for fracture with routine healing; S82.401D Unspecified fracture of shaft of right fibula, subsequent encounter for closed fracture with routine healing; Z87.891 Personal history of nicotine dependence
CPT/HCPCS: 73610; 73630; 74019; 74176; 74250; 80053; 81001; 83605; 83690; 85014; 85018; 85025; 85610; 87077; 87086; 87186; 88305; 93005; 96361; 96374; 96375; C9113; J0696; J1100; J1644; J2270; J2405; J2597; J3480; J7030; L2114; Q9963